=== PATIENT | male | born 1985 | race Caucasian/White ===

== ENCOUNTER 2022-06-23 13:35 | Inpatient (IN) ==
--- NOTE | 2022-06-23 15:33 | Cat Scan Report ---
CLINICAL INFORMATION: Infection. Evaluate for osteomyelitis COMPARISON: None. TECHNIQUE: 0.625 mm helical slices were obtained from through the left foot and ankle, and following reconstruction, 2.5 mm sagittal, coronal and axial reformations were then processed. The exam was reviewed at bone and soft tissue windows. The exam was performed using radiation dose optimization techniques including, but not limited to, automated exposure control, adjustment of the mA and/or kV according to patient size and use of iterative reconstruction technique. FINDINGS: Scattered small osteolytic foci in the phalangeal region are suspicious for multifocal osteomyelitis. Specific lesions include: 10 mm in the distal aspect of the first proximal phalanx best seen on sagittal image 36, 4 mm the distal aspect of the second middle phalanx, 5 mm in the distal aspect of the third proximal phalanx, 5 mm in the third middle phalanx, and 5 mm the distal aspect of the fourth middle phalanx. Moderate diffuse osteoporosis appreciated. There is moderate pes planus. Mild degenerative changes present in the second and fifth interphalangeal joints. There is marked cellulitis involving the dorsal aspect of the foot and ankle noted mild cellulitis in the plantar aspect of the phalangeal region IMPRESSION: Scattered small osteolytic foci in the first through fourth phalangeal region as described. These likely represent small foci of osteomyelitis. Severe cellulitis in the dorsal superior soft tissues of the foot and ankle with also plantar involving the phalangeal region. Interpreted and Authenticated by: Mejia Burrell 06/23/22
[2022-06-23 15:40] LABS: Basophils # (Auto) 0.04 K/mcL (0.00-0.30); Basophils % (Auto) 0.4 % (0.0-2.0); Eosinophils # (Auto) 0.16 K/mcL (0.00-0.70); Eosinophils % (Auto) 1.4 % (0.0-7.0); Hematocrit 45.1 % (40.1-51.0); Hemoglobin 14.2 g/dL (13.7-17.5); Lymphocytes # (Auto) 2.03 K/mcL (1.50-4.80); Lymphocytes % (Auto) 18.3 % (15.5-49.0); Mean Cell Volume 88.8 fL (80.0-100.0); Mean Corpuscular HGB Conc 31.5 g/dL (31.0-36.0); Monocytes # (Auto) 0.71 K/mcL (0.10-0.90); Monocytes % (Auto) 6.4 % (1.0-12.0); Neutrophils % (Auto) 73.1 % (38.0-78.0); Platelet Count 334 K/mcL (140-440); RBC 5.08 M/mcL (4.63-6.08); Red Cell Distribution Width 13.6 % (11.5-14.5); WBC 11.1 K/mcL (4.5-11.0)
--- NOTE | 2022-06-23 15:44 | Emergency Department Note ---
HPI General Chief complaint: Wound/Laceration Stated complaint: Infection Source: patient Mode of arrival: ambulatory Limitations: no limitations History of Present Illness HPI Narrative: Morbidly obese 37-year-old male with history of chronic lower extremity lymphedema and chronic venous insufficiency was seen in our ER on 05/19 for a left foot cellulitis. Patient has a CT scan that was equivocal for possible o steomyelitis, but left AMA before imaging could be discussed with the patient. I did prescribe Augmentin for 14 days to his pharmacy. He is back today from the wound care clinic with worsening infection of the foot. He has necrosis tissue between the first and second digits, which is new. Dr. Margaret ybarra would like us to rule him out for osteomyelitis. The patient denies F/C/S. He states that the Augmentin got him nearly completely better, but then he started developing some redness and pain to the foot approximately 4 to 5 days ago. The patient is not a good historian, and the left foot exam is not consistent with only 4 to 5 days of infection. Patient is prediabetic and not on medications for diabetes. He does carry a history of bipolar and is on multiple antipsychotics. He is also on amlodipine for hypertension. Related Data Home Medications Medication Instructions Recorded Confirmed cholecalciferol (vitamin D3) 125 5,000 unit PO QDAY 09/07/18 11/28/19 mcg (5,000 unit) capsule lamotrigine 150 mg tablet 150 mg PO BID 09/07/18 11/28/19 (Lamictal) levetiracetam 500 mg tablet 2,000 mg PO BID 09/07/18 11/28/19 (Keppra) lithium carbonate 450 mg 900 mg PO BID 09/07/18 11/28/19 tablet,extended release silver sulfadiazine 1 % topical 1 applic topical QDAY 09/07/18 11/28/19 cream acetaminophen 650 mg 650 mg PO Q4H PRN 09/10/18 11/28/19 tablet,extended release aripiprazole 15 mg tablet 15 mg PO QDAY 06/23/22 losartan 50 mg tablet 50 mg PO QDAY 06/23/22 trazodone 50 mg tablet 150 mg PO HS 06/23/22 Previous Rx's Medication Instructions Recorded oxycodone-acetaminophen 5 mg-325 1 tab PO Q4H PRN Pain #10 tabs 12/03/18 mg tablet Allergies Allergy/AdvReac Type Severity Reaction Status Date / Time hydrocodone Allergy Unknown Unknown Verified 06/23/22 13:40 ziprasidone [From Geodon] Allergy Unknown Unknown Verified 06/23/22 13:40 Review of Systems ROS ROS Narrative: Narrative: All systems ED: reviewed and negative except as stated. [facility] Narrative Patient History Narrative: Narrative: Medical/Surgical/Family History All Active Problems (Updated 06/23/22 @ 18:37 by Alicia Jackson PA-C) Osteomyelitis (Acute) Osteomyelitis (Acute) Dislocation of shoulder region (Acute) Infection of left foot (Acute) Strep throat (Chronic) Onychomycosis (Chronic) Recurrent dislocation, left shoulder (Chronic) Anxiety (Chronic) Hyperlipidemia (Chronic) DVT prophylaxis (Chronic) Ulcer (Chronic) Pseudomonas infection (Chronic) Blister (Chronic) Lower extremity edema (Chronic) Venous stasis dermatitis (Chronic) Athletes foot (Chronic) Change in weight (Chronic) Rash (Chronic) Leg swelling (Chronic) Strabismus (Chronic) Hypertension (Chronic) Depression (Chronic) Bipolar disorder (Chronic) Seizure disorder (Chronic) Obesity (Chronic) Cellulitis (Chronic) Medical History (Updated 06/23/22 @ 18:37 by Alicia Jackson PA-C) Anxiety Athletes foot Bipolar disorder Blister Cellulitis Right Leg Change in weight Depression DVT prophylaxis Hyperlipidemia Hypertension Leg swelling Lower extremity edema Obesity Onychomycosis Pseudomonas infection Rash Recurrent dislocation, left shoulder Seizure disorder Strabismus Strep throat Ulcer Venous stasis dermatitis Surgical History History of repair of rotator cuff (~07/2009) History of strabismus surgery (~1991) Family History Father Depression Mother Hypothyroid Family/Other Seizures Social History Smoking Status: Never smoker Alcohol Intake Frequency: does not drink Substance Use: does not use Exam General Limitations: no limitations Course Course Course Narrative: 37-year-old male presents for chronic left ulceration and foot wound with associated cellulitis Reevaluation(s) Reevaluation #1: Obtain basic labs, CRP, procalcitonin Obtain CT of the foot to query for osteomyelitis, necrotizing fasciitis Reevaluation #2: Mild elevation of inflammatory markers with a CRP of 3.1 and a procalcitonin of 0.10. CBC is only mildly elevated at 11,100, with a slight left shift. CT of the foot shows small scattered osteolytic foci in the first through fourth pharyngeal region. Severe cellulitis is noted to the dorsum of the foot in the soft tissues and in the ankle. No evidence of soft tissue gas to suggest necrotizing fasciitis. No abscesses. Vital Signs Vital signs: Vital Signs Temperature 97.2 F 06/23/22 13:38 Pulse Rate 120 H 06/23/22 13:38 Respiratory Rate 22 06/23/22 13:38 Blood Pressure 127/80 06/23/22 13:38 Pulse Oximetry (%) 98 06/23/22 13:38 Oxygen Delivery Method Room Air 06/23/22 13:38 Temperature 98 F 06/23/22 17:55 Pulse Rate 87 06/23/22 17:36 Respiratory Rate 22 06/23/22 17:55 Blood Pressure 144/77 06/23/22 17:55 Pulse Oximetry (%) 100 06/23/22 17:55 Oxygen Delivery Method Room Air 06/23/22 17:55 MDM MDM Narrative Medical decision making narrative: Left foot chronic wound with osteomyelitis Patient is a high risk for outpatient treatment failure due to poor follow-up and compliance. He has had multiple antibiotic exposures, most recently Augmentin. We"ll start him on broad-spectrum antibiotics to cover MRSA and Pseudomonas, as well as anaerobes. He is going to need inpatient antibiotics and further management until his infection is stabilized otherwise he is at risk of losing the limb. I reached out to the hospitalist, Dr. Walton and he is accepted the patient for admission. I have spoken with Dr. Blair who will consult for wound management. Lab Data 06/23/22 15:24 Labs: Lab Results 06/23/22 06/23/22 06/23/22 Range/Units 14:28 14:28 15:24 WBC 11.1 H (4.5-11.0) K/mcL RBC 5.08 (4.63-6.08) M/mcL Hgb 14.2 (13.7-17.5) g/dL Hct 45.1 (40.1-51.0) % MCV 88.8 (80.0-100.0) fL MCH 28.0 (26.0-34.0) pg MCHC 31.5 (31.0-36.0) g/dL RDW 13.6 (11.5-14.5) % Plt Count 334 (140-440) K/mcL MPV 10.0 (8.8-12.5) fL Immature Gran % (Auto) 0.4 (0.0-0.5) % Neut % (Auto) 73.1 (38.0-78.0) % Lymph % (Auto) 18.3 (15.5-49.0) % [place] % (Auto) 6.4 (1.0-12.0) % Eos % (Auto) 1.4 (0.0-7.0) % Baso % (Auto) 0.4 (0.0-2.0) % Lymph # (Auto) 2.03 (1.50-4.80) K/mcL [place] # (Auto) 0.71 (0.10-0.90) K/mcL Eos # (Auto) 0.16 (0.00-0.70) K/mcL Baso # (Auto) 0.04 (0.00-0.30) K/mcL Immature Gran # 0.04 (0.00-0.05) K/mcl Absolute Neutrophils 8.14 H (1.80-8.00) K/mcL C-Reactive Protein 3.10 H (0.03-0.80) mg/dL Procalcitonin 0.10 H (<0.10) ng/mL Discharge Plan Patient/Caregiver Discharge Instructions Pt seen by MANAGER FORMS/PA only: Yes Clinical Impression: Cellulitis, Osteomyelitis Patient Disposition: Home, Self-Care Discharge Date/Time: 06/23/22 17:30
[2022-06-23] MEDS ORDERED: metroNIDAZOLE 500 MG/100 ML BAG IV ONE (16:12)
[2022-06-23] MEDS ORDERED: CEFEPIME 2 GM VIAL IV ONE (16:12)
[2022-06-23] MEDS ORDERED: VANCOMYCIN 2,000 MG in 0.9 % SODIUM CHLORIDE 500 ML IV ONE ×2 (16:12→18:00)
--- NOTE | 2022-06-23 17:07 | Internal Med History&Physical ---
HPI History of Present Illness Patient information: Note initiated : 06/23/22 at 5:00 pm Service Date, if different from initiated Date: [] Patient: Miguel Vazquez 37 y/o M admitted on for Infection. Chief Complaint: [Sent from wound clinic] Chief complaint: Left foot erythema, swelling, foul odor History of present illness: Mr. Vazquez is a 37 year old morbidly obese male with a past medical history significant for hypertension, epilepsy, bipolar disorder and a nonhealing chronic left foot wound who presents from the wound clinic for worsening of the wound. The wound is necrotic appearing in between the webspaces of the first and second MTP. His foot is quite swollen and erythematous. The patient also has clear evidence of onychomycosis of his toenails. Dr. Cook recommended that he come to the ER for further management and evaluation. CT imaging was concerning for early osteomyelitis. The patient will be hospitalized to start parenteral antibiotics. The hospital service was asked admit the patient for further management and evaluation. The patient states that he has been off p.o. antibiotics for nearly 2 weeks. He states that his foot infection has worsened in the interim. The patient has a history of medical noncompliance. This may be in the setting of underlying psych disorder. He has been seen by infectious disease in the past. Review of Systems All systems: reviewed and no additional remarkable complaints except as stated Constitutional Constitutional: Present as per HPI EENT Eyes: Present as per HPI; Absent blurry vision Cardiovascular Cardiovascular: Present as per HPI; Absent chest pain, dyspnea, dyspnea on exertion, leg edema or palpatations Respiratory Respiratory: Present as per HPI; Absent cough, dyspnea, dyspnea on exertion, wheezing or stridor Gastrointestinal Gastrointestinal: Present as per HPI; Absent abdominal pain, diarrhea, dysphagia, hematemesis, melena, nausea or vomiting Musculoskeletal Musculoskeletal: Present as per HPI; Absent joint swelling, limited range of motion, muscle cramps, muscle weakness or myalgias Integumentary Integumentary: Present as per HPI; Absent erythema, new lesions, rash or wounds Neurological Neurological: Present as per HPI; Absent abnormal gait, behavioral changes, focal weakness, headache(s), loss of vision, numbness, sensory deficit or syncope Endocrine Endocrine: Absent change in body appearance, fatigue or heat intolerance Hematologic/Lymphatic Hematologic/Lymphatic: Present as per HPI PFSH PFSH All Active Problems (Updated 06/23/22 @ 17:05 by Ricco Walton MD) Osteomyelitis (Acute) Dislocation of shoulder region (Acute) Infection of left foot (Acute) Strep throat (Chronic) Onychomycosis (Chronic) Recurrent dislocation, left shoulder (Chronic) Anxiety (Chronic) Hyperlipidemia (Chronic) DVT prophylaxis (Chronic) Ulcer (Chronic) Pseudomonas infection (Chronic) Blister (Chronic) Lower extremity edema (Chronic) Venous stasis dermatitis (Chronic) Athletes foot (Chronic) Change in weight (Chronic) Rash (Chronic) Leg swelling (Chronic) Strabismus (Chronic) Hypertension (Chronic) Depression (Chronic) Bipolar disorder (Chronic) Seizure disorder (Chronic) Obesity (Chronic) Cellulitis (Chronic) Medical History (Updated 06/23/22 @ 17:05 by Ricco Walton MD) Anxiety Athletes foot Bipolar disorder Blister Cellulitis Right Leg Change in weight Depression DVT prophylaxis Hyperlipidemia Hypertension Leg swelling Lower extremity edema Obesity Onychomycosis Pseudomonas infection Rash Recurrent dislocation, left shoulder Seizure disorder Strabismus Strep throat Ulcer Venous stasis dermatitis Surgical History History of repair of rotator cuff (~07/2009) History of strabismus surgery (~1991) Family History Father Depression Mother Hypothyroid Family/Other Seizures Social History (Updated 06/18/19 @ 10:46 by Esdras Schmitz MD) marital status: single occupational status: disabled physical activity: walking frequency: 5-6 times per week smoking status: Never smoker alcohol intake frequency: does not drink substance use type: does not use seatbelt use: always MEDS/ALLERGIES Home Medications and Allergies Home Medications Medication Instructions Recorded Confirmed Type amlodipine 5 mg tablet 5 mg PO QDAY 09/07/18 11/28/19 History cholecalciferol (vitamin D3) 125 5,000 unit PO QDAY 09/07/18 11/28/19 History mcg (5,000 unit) capsule lamotrigine 150 mg tablet 150 mg PO BID 09/07/18 11/28/19 History (Lamictal) levetiracetam 500 mg tablet 2,000 mg PO BID 09/07/18 11/28/19 History (Keppra) lithium carbonate 450 mg 900 mg PO BID 09/07/18 11/28/19 History tablet,extended release silver sulfadiazine 1 % topical 1 applic topical QDAY 09/07/18 11/28/19 History cream trazodone 100 mg tablet 200 mg PO QHS 09/07/18 11/28/19 History acetaminophen 650 mg 650 mg PO Q4H PRN 09/10/18 11/28/19 History tablet,extended release oxycodone-acetaminophen 5 mg-325 1 tab PO Q4H PRN Pain #10 tabs 12/03/18 11/28/19 Rx mg tablet aripiprazole 30 mg tablet (Abilify) 15 mg PO QDAY 11/28/19 11/28/19 History amoxicillin 875 mg-potassium 1 tab PO BID #28 tabs 05/25/22 Rx clavulanate 125 mg tablet Allergies Allergy/AdvReac Type Severity Reaction Status Date / Time hydrocodone Allergy Unknown Unknown Verified 06/23/22 13:40 ziprasidone [From Geodon] Allergy Unknown Unknown Verified 06/23/22 13:40 EXAM Constitutional Vitals: Temp Pulse Resp BP Pulse Ox O2 Del Method 97.2 F 120 H 22 127/80 98 Room Air 06/23/22 13:38 06/23/22 13:38 06/23/22 13:38 06/23/22 13:38 06/23/22 13:38 06/23/22 13:38 General appearance: average body habitus Head Head exam: Present atraumatic, normal inspection and normocephalic Eye Eye exam: Present EOMI, normal appearance and PERRL; Absent conjunctival injection ENT ENT exam: Present normal exam; Absent mucous membranes dry Neck Neck exam: Present full ROM; Absent lymphadenopathy Respiratory Respiratory exam: Present normal respiratory exam and CTAB; Absent decreased breath sounds, respiratory distress or wheezes Cardiovascular Cardiovascular exam: Present normal rate and rhythm and RRR; Absent JVD GI/Abdominal GI/Abdominal exam: Present normal bowel sounds and soft; Absent diminished bowel sounds, distended, guarding, mass, rebound or tenderness Neurological Exam Neurological exam: Present alert, CN II-XII intact and oriented X3 Psychiatric Psychiatric exam: Present normal affect and normal mood Skin Skin exam: Present intact and warm; Absent erythema, pallor, petechiae or rash DATA Data Completed and Pending Labs: Labs from last 24 hours 06/23/22 06/23/22 06/23/22 15:24 14:28 14:28 WBC 11.1 H RBC 5.08 Hgb 14.2 Hct 45.1 MCV 88.8 MCH 28.0 MCHC 31.5 RDW 13.6 Plt Count 334 MPV 10.0 Immature Gran % (Auto) 0.4 Neut % (Auto) 73.1 Lymph % (Auto) 18.3 [place] % (Auto) 6.4 Eos % (Auto) 1.4 Baso % (Auto) 0.4 Lymph # (Auto) 2.03 [place] # (Auto) 0.71 Eos # (Auto) 0.16 Baso # (Auto) 0.04 Immature Gran # 0.04 Absolute Neutrophils 8.14 H C-Reactive Protein 3.10 H Procalcitonin 0.10 H A/P Assessment and plan (1) Cellulitis: Status: Chronic Comment: Right Leg (2) Obesity: Status: Chronic (3) Seizure disorder: Status: Chronic (4) Bipolar disorder: Status: Chronic (5) Depression: Status: Chronic (6) Hypertension: Status: Chronic (7) Osteomyelitis: Status: Acute Narrative A/P Narrative: At this point, the patient would benefit from operative debridement in order to remove necrotic material and culture the tissue and possibly the bone as well. This will be followed up by continuous long-term antimicrobial therapy to eradicate the rest of the infection. He will be started on broad-spectrum antibiotics with cefepime and vancomycin as he would benefit from an tipseudomonal and MRSA coverage. We will consult telemetry infectious disease in the morning. We will also discussed the case with Dr. Cook. Medication reconciliation is pending. Time Spent With Patient Time: Total time spent is greater than 50% in coordination of care (as documented) at patient's floor/unit and/or counseling patient: Initial: Total time with patient: 75 - 90 minutes
[2022-06-23] MEDS ORDERED: ONDANSETRON 4 MG/2 ML VIAL IV PRN (17:35)
[2022-06-23] MEDS ORDERED: HYDROcodone/APAP 5/325MG TABLET PO PRN (17:35)
[2022-06-23] MEDS ORDERED: IBUPROFEN 600 MG TABLET PO PRN (17:35)
[2022-06-23] MEDS ORDERED: ACETAMINOPHEN 325 MG TABLET PO PRN (17:35)
[2022-06-23] MEDS ORDERED: CEFEPIME 2 GM VIAL IV SCH (17:35)
[2022-06-23] MEDS: oxyCODONE/APAP 5/325MG TABLET PO PRN (21:04)
[2022-06-23] MEDS: DOCUSATE SODIUM 100 MG CAPSULE PO SCH (21:04)
[2022-06-23] MEDS: SENNOSIDES 1 TABLET PO SCH (21:04)
[2022-06-23] MEDS: CEFEPIME 2 GM VIAL IV SCH (22:14)
[2022-06-23] MEDS: 0.9 % SODIUM CHLORIDE 10 ML SYRINGE IV SCH (23:51)
[2022-06-24] MEDS: oxyCODONE/APAP 5/325MG TABLET PO PRN ×4 (04:44→18:56)
[2022-06-24] MEDS: CEFEPIME 2 GM VIAL IV SCH ×3 (05:23→21:33)
[2022-06-24] MEDS: 0.9 % SODIUM CHLORIDE 10 ML SYRINGE IV SCH ×3 (05:24→21:46)
[2022-06-24 06:21] LABS: Basophils # (Auto) 0.04 K/mcL (0.00-0.30); Basophils % (Auto) 0.5 % (0.0-2.0); Eosinophils # (Auto) 0.19 K/mcL (0.00-0.70); Eosinophils % (Auto) 2.2 % (0.0-7.0); Hematocrit 39.3 % (40.1-51.0); Lymphocytes # (Auto) 1.52 K/mcL (1.50-4.80); Lymphocytes % (Auto) 17.3 % (15.5-49.0); Mean Cell Volume 90.6 fL (80.0-100.0); Mean Corpuscular HGB Conc 30.5 g/dL (31.0-36.0); Mean Platelet Volume 9.5 fL (8.8-12.5); Monocytes # (Auto) 0.74 K/mcL (0.10-0.90); Monocytes % (Auto) 8.4 % (1.0-12.0); Neutrophils % (Auto) 71.3 % (38.0-78.0); Platelet Count 267 K/mcL (140-440); RBC 4.34 M/mcL (4.63-6.08); Red Cell Distribution Width 13.7 % (11.5-14.5); WBC 8.8 K/mcL (4.5-11.0)
[2022-06-24 06:37] LABS: Blood Urea Nitrogen 7 mg/dL (6-20); Calcium 8.5 mg/dL (8.6-10.4); Carbon Dioxide 27 mmol/L (22-30); Chloride 103 mmol/L (96-108); Glomerular Filtration Rate 115; Glucose 95 mg/dL (70-105)
[2022-06-24 06:52] LABS: Erythrocyte Sedimentation Rate 31 mm/hr (0-15)
[2022-06-24] MEDS ORDERED: VANCOMYCIN 2,000 MG in 0.9 % SODIUM CHLORIDE 500 ML IV ONE (07:00)
--- NOTE | 2022-06-24 08:28 | Infectious Disease Consult ---
Telemedicine Intake Start Time: 11:13 (AM PST) End Time: 11:53 (AM PST) Consent for assessment and treatment to occur via virtual technology obtained from: Patient Location of Provider: Other ([place]) Patient location: Intensive Care Unit HPI Date of Consult Consult Date: 06/24/22 Requesting physician: Ricco Walton Primary Care Provider: Mika Jessica MD Consult Narrative Patient Information: Note initiated : 06/24/22 at 8:28 am Service Date, if different from initiated Date: [] Patient: Miguel Vazquez 37 y/o M admitted on 06/23/22 for Infection. Chief Complaint: Left toes early osteomyelitis Reason for consult: Osteomyelitis Left toes cc:: This is a 37-year-old male prior medical history of morbid obesity, chronic lower extremity lymphedema, chronic venous insufficiency, and lower extremity stasis dermatitis, recurrent cellulitis recently treated with Augmentin back in April 2022 x 14 days who was admitted to our institution after being sent from wound care clinic for malodorous smell in between left toes and worsening infection. As per patient, he has had issues with his recurrent cellulitis for about 1year after he wore some shoes that caused his foot skin to open up. In the medical chart, patient has been seen as far back as 2019 and patient has had wound cultures which grew Staph haemolyticus, Pseudomonas, and even MRSA. Upon intial evaluation, pt was afebrile (97.2F) but tachycardic (120bpm), tachypneic (rr= 22/min), o2 sat 95%, normotensive (127/80mmHg). On labs, pt has mild leukocytosis (wbc 11.1k), esr 31, crp 3.50, pct 0.10. CT scan of left lower extremity and foot were performed found consistent with s cattered small osteolytic foci in the first through fourth phalangeal region which may represent small foci for osteomyelitis associated with severe cellulitis in the dorsal superior soft tissues of the foot and ankle also plantar involving the phalangeal region. Preliminary wound culutre +gram pos itive cocci / gram negative bacillus. Patient was started on IV vancomycin and cefepime, now consulted to ID service for further recommendations. Constitutional Constitutional: Present fatigue Additional comments: Referred feeling slightly tired during the weeks prior to admission Cardiovascular Cardiovascular: Present chest pain and leg edema Additional comments: Refers LLE Respiratory Respiratory: Present cough Additional comments: denies Gastrointestinal Gastrointestinal: Present nausea and vomiting Additional comments: denies Integumentary Integumentary: Present as per HPI, erythema, lesions, skin pain and wounds Additional comments: Refers worsening pain in the left foot and malodorous smell Neurological Neurological: Present confusion and headache(s) Additional comments: denies Psychiatric Psychiatric: Present as per HPI Additional comments: denies Hematologic/Lymphatic Additional comments: Presents for evaluationdenies Allergic/Immunologic Additional comments: denies PFSH PFSH All Active Problems (Updated 06/24/22 @ 12:20 by Julia Lee MD) Left leg cellulitis (Acute) Osteomyelitis (Acute) Osteomyelitis (Acute) Dislocation of shoulder region (Acute) Infection of left foot (Acute) Strep throat (Chronic) Onychomycosis (Chronic) Recurrent dislocation, left shoulder (Chronic) Anxiety (Chronic) Hyperlipidemia (Chronic) DVT prophylaxis (Chronic) Ulcer (Chronic) Pseudomonas infection (Chronic) Blister (Chronic) Lower extremity edema (Chronic) Venous stasis dermatitis (Chronic) Athletes foot (Chronic) Change in weight (Chronic) Rash (Chronic) Leg swelling (Chronic) Strabismus (Chronic) Hypertension (Chronic) Depression (Chronic) Bipolar disorder (Chronic) Seizure disorder (Chronic) Obesity (Chronic) Cellulitis (Chronic) Medical History (Updated 06/24/22 @ 12:20 by Julia Lee MD) Anxiety Athletes foot Bipolar disorder Blister Cellulitis Right Leg Change in weight Depression DVT prophylaxis History of MRSA infection Hyperlipidemia Hypertension Leg swelling Lower extremity edema Obesity Onychomycosis Pseudomonas infection Rash Recurrent dislocation, left shoulder Seizure disorder Strabismus Strep throat Ulcer Venous stasis dermatitis Surgical History History of repair of rotator cuff (~07/2009) History of strabismus surgery (~1991) Family History Father Depression Mother Hypothyroid Family/Other Seizures Social History marital status: single occupational status: disabled physical activity: walking frequency: 5-6 times per week smoking status: Never smoker alcohol intake frequency: does not drink substance use type: does not use seatbelt use: always MEDS/ALLERGIES Home Medications and Allergies Home Medications Medication Instructions Recorded Confirmed Type lamotrigine 150 mg tablet 150 mg PO BID 09/07/18 06/24/22 History (Lamictal) levetiracetam 500 mg tablet 2,000 mg PO BID 09/07/18 06/24/22 History (Keppra) lithium carbonate 450 mg 900 mg PO BID 09/07/18 06/24/22 History tablet,extended release acetaminophen 650 mg 650 mg PO Q4H PRN Pain 09/10/18 06/24/22 History tablet,extended release aripiprazole 15 mg tablet 15 mg PO QDAY 06/23/22 06/24/22 History losartan 50 mg tablet 50 mg PO QDAY 06/23/22 06/24/22 History trazodone 50 mg tablet 150 mg PO HS 06/23/22 06/24/22 History furosemide 40 mg tablet 80 mg PO QDAY 06/24/22 06/24/22 History gabapentin 300 mg capsule 600 mg PO BID neuropathic pain 06/24/22 06/24/22 History potassium chloride 20 mEq 40 meq PO QDAY 06/24/22 06/24/22 History tablet,extended release(part/cryst) (Klor-Con M) topiramate 50 mg tablet 150 mg PO HS 06/24/22 06/24/22 History Allergies Allergy/AdvReac Type Severity Reaction Status Date / Time hydrocodone Allergy Severe Seizure Verified 06/24/22 06:56 ziprasidone [From Geodon] Allergy Unknown Unknown Verified 06/23/22 13:40 Physical Examination Vital Signs Vital signs: Temp Pulse Resp BP Pulse Ox O2 Del Method 98.0 F 81 20 124/65 92 Room Air 06/24/22 07:22 06/24/22 07:26 06/24/22 07:22 06/24/22 07:25 06/24/22 07:26 06/24/22 07:22 Constitutional General appearance: no acute distress, alert and other (disheveled appearance, morbidly obese) EENT Eyes pulmonary: nonicteric ENT: oropharynx moist Respiratory Effort: normal Gastrointestinal Gastrointestinal: non-tender Integumentary Integumentary: erythema, cellulitis and other (presence of macerated, hyperpigmented skin of left foot and in between all toes; +yellow secretions seen ) Extremities Extremities: other (Left lower extremity hyperpigmented changes, shiny skin, devoid of hair, edema, erythema ) Neurologic Neurological: normal mental status Psychiatric Psychiatric: mood appropriate Results Laboratory Findings 06/24/22 05:30 06/24/22 05:30 Abnormal lab findings: Abnormal Labs 06/23/22 06/23/22 06/23/22 14:28 14:28 15:24 WBC 11.1 H RBC Hgb Hct MCHC Absolute Neutrophils 8.14 H ESR Anion Gap Calcium C-Reactive Protein 3.10 H Procalcitonin 0.10 H 06/24/22 06/24/22 05:30 05:30 WBC RBC 4.34 L Hgb 12.0 L Hct 39.3 L MCHC 30.5 L Absolute Neutrophils ESR 31 H Anion Gap 6.0 L Calcium 8.5 L C-Reactive Protein 3.50 H Procalcitonin Microbiology: Microbiology 06/24/22 05:31 Foot - Left Gram Stain - Preliminary Diagnostic Findings CT scan - chest: report reviewed A/P Assessment and plan (1) Osteomyelitis: Assessment and plan: - add metronidazole 500 mg IV every 8 hours to cover anaerobic darrick - discontinue Vancomycin IV based on pt's weight will require dosing above the recommended dose - obtain baseline CPK levels - start Daptomycin 700mg IV daily for now - agree with Cefepime 2g IV q8hrs - follow up blood cultures - follow up wound cultures - obtain LLE doppler US to rule out DVT - obtain MRSA in nares, pt had prior hx +MRSA - if BCx negative at 48hrs, place PICC line. Discussed with patient he will need prolonged 6 weeks IV antibiotic course given his long and recurrent history of foot infections - will follow up results for further recommendations Status: Acute (2) Left leg cellulitis: Status: Acute (3) Onychomycosis: Assessment and plan: - follow up with Podiatry Status: Chronic Time Spent With Patient Time: Total time spent is greater than 50% in coordination of care (as documented) at patient's floor/unit and/or counseling patient: Initial: Total time with patient: Less than 40 minutes Total Critical Care Time: 40 (mins)
[2022-06-24] MEDS ORDERED: VANCOMYCIN PER PHARMACY IV SCH (09:00)
[2022-06-24] MEDS ORDERED: ENOXAPARIN 40 MG/0.4 ML SYRINGE SQ SCH (09:00)
--- NOTE | 2022-06-24 09:13 | General Surgery Consult Note ---
HPI Date of Consult Consult Date: 06/24/22 Requesting physician: Ricco Walton Primary Care Provider: Mika Jessica MD Consult Narrative Patient Information: Note initiated : 06/24/22 at 8:53 am Service Date, if different from initiated Date: [] Patient: Miguel Vazquez 37 y/o M admitted on 06/23/22 for Infection. Chief Complaint: [] cc:: Evaluation and treatment of skin ans soft tissue wound and infection LEFT forefoot. Patient admitted via ER with DTI, CSSSI, and cellulitis of LEFT forefoot, toes / toenails. Patient with morbid obesity, Metabolic syndrome, IDDM, Onychomycosis of toenails. I saw this established patient at wound care clinic prior to his admission. CC: Ricco Walton MD Review of Systems All systems: reviewed and no additional remarkable complaints except as stated PFSH PFSH All Active Problems Osteomyelitis (Acute) Osteomyelitis (Acute) Dislocation of shoulder region (Acute) Infection of left foot (Acute) Strep throat (Chronic) Onychomycosis (Chronic) Recurrent dislocation, left shoulder (Chronic) Anxiety (Chronic) Hyperlipidemia (Chronic) DVT prophylaxis (Chronic) Ulcer (Chronic) Pseudomonas infection (Chronic) Blister (Chronic) Lower extremity edema (Chronic) Venous stasis dermatitis (Chronic) Athletes foot (Chronic) Change in weight (Chronic) Rash (Chronic) Leg swelling (Chronic) Strabismus (Chronic) Hypertension (Chronic) Depression (Chronic) Bipolar disorder (Chronic) Seizure disorder (Chronic) Obesity (Chronic) Cellulitis (Chronic) Medical History Anxiety Athletes foot Bipolar disorder Blister Cellulitis Right Leg Change in weight Depression DVT prophylaxis Hyperlipidemia Hypertension Leg swelling Lower extremity edema Obesity Onychomycosis Pseudomonas infection Rash Recurrent dislocation, left shoulder Seizure disorder Strabismus Strep throat Ulcer Venous stasis dermatitis Surgical History History of repair of rotator cuff (~07/2009) History of strabismus surgery (~1991) Family History Father Depression Mother Hypothyroid Family/Other Seizures Social History marital status: single occupational status: disabled physical activity: walking frequency: 5-6 times per week smoking status: Never smoker alcohol intake frequency: does not drink substance use type: does not use seatbelt use: always MEDS/ALLERGIES Home Medications and Allergies Home Medications Medication Instructions Recorded Confirmed Type lamotrigine 150 mg tablet 150 mg PO BID 09/07/18 06/24/22 History (Lamictal) levetiracetam 500 mg tablet 2,000 mg PO BID 09/07/18 06/24/22 History (Keppra) lithium carbonate 450 mg 900 mg PO BID 09/07/18 06/24/22 History tablet,extended release acetaminophen 650 mg 650 mg PO Q4H PRN Pain 09/10/18 06/24/22 History tablet,extended release aripiprazole 15 mg tablet 15 mg PO QDAY 06/23/22 06/24/22 History losartan 50 mg tablet 50 mg PO QDAY 06/23/22 06/24/22 History trazodone 50 mg tablet 150 mg PO HS 06/23/22 06/24/22 History furosemide 40 mg tablet 80 mg PO QDAY 06/24/22 06/24/22 History gabapentin 300 mg capsule 600 mg PO BID neuropathic pain 06/24/22 06/24/22 History potassium chloride 20 mEq 40 meq PO QDAY 06/24/22 06/24/22 History tablet,extended release(part/cryst) (Klor-Con M) topiramate 50 mg tablet 150 mg PO HS 06/24/22 06/24/22 History Allergies Allergy/AdvReac Type Severity Reaction Status Date / Time hydrocodone Allergy Severe Seizure Verified 06/24/22 06:56 ziprasidone [From Geodon] Allergy Unknown Unknown Verified 06/23/22 13:40 Physical Examination Vital Signs Vital signs: Temp Pulse Resp BP Pulse Ox O2 Del Method 98.0 F 81 20 124/65 92 Room Air 06/24/22 07:22 06/24/22 07:26 06/24/22 07:22 06/24/22 07:25 06/24/22 07:26 06/24/22 07:22 General physical appearance General physical exam: no distress and obese (Supermorbid obesity) Eyes Eye exam: PERRL and normal ocular movement ENT ENT exam: normal pinna, normal mucosa and no congestion Head Head exam IM: Present atraumatic and normocephalic Neck Neck exam: no masses and no venous distension Cardiovascular Cardiovascular exam IM: Present normal rate and rhythm Respiratory Respiratory exam: normal respiratory effort, clear to auscultation and other (Morbid obesity. Decreased air entry at lung bases.) Abdomen Abdomen: Present soft and bowel sounds Integumentary Integumentary: Present other (CSSSI, DTI LEFT 1st interdigital skin and sub q with odorous draiange. H/O MRSA in past. CELLULITIS extends to dorsal forefoot. Onychomycosis toenails) Neurologic Neurologic: Present other (Diabetes. Peripheral neuropathy) Musculoskeletal Musculoskeletal: Present other (Extensive soft tissue edema and tenderness along toes and toe movements LEFT foot. 1 thru 4 toes.) Psychiatric Psychiatric: Present oriented to time, oriented to person, oriented to place, speech is normal and memory intact Results Labs 06/24/22 05:30 06/24/22 05:30 Labs: Abnormal lab results 06/23/22 06/23/22 06/23/22 Range/Units 14:28 14:28 15:24 WBC 11.1 H (4.5-11.0) K/mcL RBC (4.63-6.08) M/mcL Hgb (13.7-17.5) g/dL Hct (40.1-51.0) % MCHC (31.0-36.0) g/dL Absolute Neutrophils 8.14 H (1.80-8.00) K/mcL ESR (0-15) mm/hr Anion Gap (8.0-16.0) Calcium (8.6-10.4) mg/dL C-Reactive Protein 3.10 H (0.03-0.80) mg/dL Procalcitonin 0.10 H (<0.10) ng/mL 06/24/22 06/24/22 Range/Units 05:30 05:30 WBC (4.5-11.0) K/mcL RBC 4.34 L (4.63-6.08) M/mcL Hgb 12.0 L (13.7-17.5) g/dL Hct 39.3 L (40.1-51.0) % MCHC 30.5 L (31.0-36.0) g/dL Absolute Neutrophils (1.80-8.00) K/mcL ESR 31 H (0-15) mm/hr Anion Gap 6.0 L (8.0-16.0) Calcium 8.5 L (8.6-10.4) mg/dL C-Reactive Protein 3.50 H (0.03-0.80) mg/dL Procalcitonin (<0.10) ng/mL Diabetes panel 06/24/22 Range/Units 05:30 Sodium 136 (133-145) mmol/L Potassium 3.7 (3.3-5.1) mmol/L Chloride 103 (96-108) mmol/L Carbon Dioxide 27 (22-30) mmol/L BUN 7 (6-20) mg/dL Creatinine 0.8 (0.7-1.2) mg/dL Glucose 95 (70-105) mg/dL Calcium 8.5 L (8.6-10.4) mg/dL Calcium panel 06/24/22 Range/Units 05:30 Calcium 8.5 L (8.6-10.4) mg/dL Pituitary panel 06/24/22 Range/Units 05:30 Sodium 136 (133-145) mmol/L Potassium 3.7 (3.3-5.1) mmol/L Chloride 103 (96-108) mmol/L Carbon Dioxide 27 (22-30) mmol/L BUN 7 (6-20) mg/dL Creatinine 0.8 (0.7-1.2) mg/dL Glucose 95 (70-105) mg/dL Calcium 8.5 L (8.6-10.4) mg/dL Adrenal panel 06/24/22 Range/Units 05:30 Sodium 136 (133-145) mmol/L Potassium 3.7 (3.3-5.1) mmol/L Chloride 103 (96-108) mmol/L Carbon Dioxide 27 (22-30) mmol/L BUN 7 (6-20) mg/dL Creatinine 0.8 (0.7-1.2) mg/dL Glucose 95 (70-105) mg/dL Calcium 8.5 L (8.6-10.4) mg/dL All other labs normal. A/P Narrative A/P Narrative: assessment: CSSSI LEFT forefoot and toes. Onychomycosis of toenails Cellulitis LEFT forefoot. DTI LEFT foot between 1 and 2 toes. Suspect mixed infection. Polymicrobial Morbid obesity, Metabolic Syndrome DM2 Peripheral neuropathy HTN Other multiple comorbidities. Plan of Treatment: Plan: Podiatry consult. Dr. Bustamante. Wound care nurse for skin care. Infectious Disease consult MIST with VASHE Left forefoot daily SANTYL ointment toe DTI after MIST QD Antifungal powder between toes BID Dry gauze between toes/ Kerlix PRN I have discussed POC with Kate KURTZ AND Dr. Walton Hospitalist Physician. I shall be OOT until Monday06/27/2022 Dr. Bustamante covering. Time Spent With Patient Time: Total time spent is greater than 50% in coordination of care (as documented) at patient's floor/unit and/or counseling patient: Initial: Total time with patient: 55 - 74 minutes
--- NOTE | 2022-06-24 09:29 | Internal Med Progress Note ---
SUBJECTIVE Subjective Patient information: Note initiated : 06/24/22 at 9:27 am Service Date, if different from initiated Date: [] Patient: Miguel Vazquez 37 y/o M admitted on 06/23/22 for Infection. Chief Complaint: [Left foot infection] Principal diagnosis: Left foot necrotic cellulitis/osteomyelitis Interval history: The patient was resting comfortably in bed. He is in good spirits. Discussed the case with Dr. Cook. Constitutional Vitals: Vital Signs Temp Pulse Resp BP Pulse Ox O2 Del Method 98.0 F 81 20 124/65 92 Room Air 06/24/22 07:22 06/24/22 07:26 06/24/22 07:22 06/24/22 07:25 06/24/22 07:26 06/24/22 07:22 Period Temp Pulse Resp BP Sys/Soto Pulse Ox O2 Del Method O2 Flow Rate Last 24 Hr 97.2 F-98.4 F 78-120 18-22 124-161/65-87 92-100 Room Air-Room Air Intake and Output 06/23/22 06/24/22 06/24/22 19:59 03:59 11:59 Intake Total 580 500 800 Output Total 1000 1800 Balance 580 -500 -1000 Weight 203.3 kg Intake & Output: Intake & Output 06/23/22 06/24/22 06/24/22 19:59 03:59 11:59 Intake Total 580 500 800 Output Total 1000 1800 Balance 580 -500 -1000 Weight 203.3 kg Intake: IV 100 500 Vancomycin 2,000 mg In Sodium 500 Chloride 0.9% 500 ml @ 250 mls/ hr IV ONCE ONE Rx#:[id number] Oral 480 800 Output: Urine Catheter Amount 850 Void Amount 1000 950 Other: Urine Appearance Clear Clear Urine Color Pale Yellow Head Head exam: Present atraumatic and normal inspection Eye Eye exam: Present normal appearance ENT ENT exam: Present mucous membranes moist, normal exam and normal external ear exam Neck Neck exam: Present normal inspection Respiratory Respiratory exam: Present normal respiratory exam Cardiovascular Cardiovascular exam: Present normal rate and rhythm GI/Abdominal GI/Abdominal exam: Present normal bowel sounds Back Exam Back exam: Present normal inspection Neurological Exam Neurological exam: Present alert and oriented X3 Skin Skin exam: Present intact and warm OBJ DATA Labs 06/24/22 05:30 06/24/22 05:30 Labs: Abnormal Lab Results 06/24/22 06/24/22 06/23/22 05:30 05:30 15:24 WBC 11.1 H RBC 4.34 L Hgb 12.0 L Hct 39.3 L MCHC 30.5 L Absolute Neutrophils 8.14 H ESR 31 H Anion Gap 6.0 L Calcium 8.5 L C-Reactive Protein 3.50 H Procalcitonin 06/23/22 06/23/22 14:28 14:28 WBC RBC Hgb Hct MCHC Absolute Neutrophils ESR Anion Gap Calcium C-Reactive Protein 3.10 H Procalcitonin 0.10 H Meds: Medications Acetaminophen (Acetaminophen 325 Mg Tablet) 650 mg PO Q6HP PRN; Protocol PRN Reason: Per Pain Protocol/Fever > 101 Cefepime HCl (Cefepime 2 Gm Vial) 2 gm IV Q8H [facility]; Protocol Last Admin: 06/24/22 05:23 Dose: 2 gm Docusate Sodium (Docusate Sodium 100 Mg Capsule) 100 mg PO BID [facility] Last Admin: 06/23/22 21:04 Dose: 100 mg Enoxaparin Sodium (Enoxaparin 40 Mg/0.4 Ml Syringe) 40 mg SQ DAILY [facility] Furosemide (Furosemide 40 Mg Tablet) 80 mg PO QDAY [facility] Gabapentin (Gabapentin 300 Mg Capsule) 600 mg PO BID [facility] Ibuprofen (Ibuprofen 600 Mg Tablet) 600 mg PO QIDP PRN; Protocol PRN Reason: Per Pain Protocol/Fever > 101 Lamotrigine (Lamotrigine 150 Mg Tablet) 150 mg PO BID [facility] Levetiracetam (Levetiracetam 500 Mg Tablet) 2,000 mg PO BID [facility] [place] Carbonate ([place] Carbonate 450 Mg Tab.Sr.12h) 900 mg PO BID [facility] Losartan Potassium (Losartan 50 Mg Tablet) 50 mg PO QDAY [facility] Ondansetron HCl (Ondansetron 4 Mg/2 Ml Vial) 4 mg IV Q6HP PRN PRN Reason: Nausea And Vomiting Oxycodone/Acetaminophen (Oxycodone/Apap 5/325mg Tablet) 1 tab PO Q4-6HP PRN; Protocol PRN Reason: Per Pain Protocol Last Admin: 06/24/22 04:44 Dose: 1 tab Potassium Chloride (Potassium Chloride 20 Meq Tablet) 40 meq PO QAMCC [facility] Senna (Sennosides 1 Tablet) 2 tab PO HS [facility] Last Admin: 06/23/22 21:04 Dose: 2 tab Sodium Chloride (0.9 % Sodium Chloride 10 Ml Syringe) 10 ml IV Q8 [facility] Last Admin: 06/24/22 05:24 Dose: 10 ml Topiramate (Topiramate 50 Mg Tablet) 150 mg PO HS [facility] Trazodone HCl (Trazodone Hcl 50 Mg Tablet) 150 mg PO HS [facility] Vancomycin HCl (Vancomycin Per Pharmacy) 1 order IV DAILY [facility]; Protocol Last Admin: 06/24/22 09:18 Dose: Not Given A/P Assessment and plan (1) Cellulitis: Status: Chronic Comment: Right Leg (2) Obesity: Status: Chronic (3) Seizure disorder: Status: Chronic (4) Bipolar disorder: Status: Chronic (5) Depression: Status: Chronic (6) Hypertension: Status: Chronic (7) Osteomyelitis: Status: Acute Narrative A/P Narrative: At this point, the patient would benefit from operative debridement in order to remove necrotic material and culture the tissue and possibly the bone as well. This will be followed up by continuous long-term antimicrobial therapy to eradicate the rest of the infection. He will be started on broad-spectrum antibiotics with cefepime and vancomycin as he would benefit from antipseudomonal and MRSA coverage. We will consult telemetry infectious disease in the morning. We will also discussed the case with Dr. Cook. Medication reconciliation is pending. 06/23: Med rec was performed. Discussed the case with Dr. Cook who will not take the patient to the OR but recommends chemical debridement with collagenase. He recommends podiatry consult over the weekend. Telemetry ID will also be consulted. Plan of Treatment: Plan: Podiatry consult. Dr. Bustamante. Wound care nurse for skin care. Infectious Disease consult MIST with LOGANHE Left forefoot daily SANTYL ointment toe DTI after MIST QD Antifungal powder between toes BID Dry gauze between toes/ Kerlix PRN I have discussed POC with Kate KURTZ AND Dr. Walton Hospitalist Physician. I shall be OOT until Monday06/27/2022 Dr. Bustamante covering. Time Spent With Patient Time: Total time spent is greater than 50% in coordination of care (as documented) at patient's floor/unit and/or counseling patient: Subsequent: Total time with patient: 25 - 34 minutes QUALITY VTE Deep Vein Thrombosis/Pulmonary Embolism Present on Admission: No
[2022-06-24] MEDS: ENOXAPARIN 40 MG/0.4 ML SYRINGE SQ SCH ×2 (11:06→21:33)
[2022-06-24] MEDS: DOCUSATE SODIUM 100 MG CAPSULE PO SCH ×2 (11:08→21:33)
[2022-06-24] MEDS: lamoTRIgine 100 MG TABLET PO SCH ×2 (11:09→21:46)
[2022-06-24] MEDS: GABAPENTIN 300 MG CAPSULE PO SCH ×2 (11:10→21:33)
[2022-06-24] MEDS: levETIRAcetam 500 MG TABLET PO SCH ×2 (11:10→21:45)
[2022-06-24] MEDS: LOSARTAN 50 MG TABLET PO SCH (11:11)
[2022-06-24] MEDS: FUROSEMIDE 40 MG TABLET PO SCH (11:11)
[2022-06-24] MEDS: ARIPIPRAZOLE 5 MG TABLET PO SCH (11:11)
[2022-06-24] MEDS: POTASSIUM CHLORIDE 20 MEQ TABLET PO SCH (11:12)
[2022-06-24] MEDS: COLLAGENASE TOP OINT TUBE 30GM TOPICAL SCH (14:20)
[2022-06-24] MEDS ORDERED: DAPTOmycin 500 MG VIAL IV SCH (15:00)
--- NOTE | 2022-06-24 15:43 | Ultrasound Report ---
CLINICAL INFORMATION: Left leg swelling COMPARISON: None. FINDINGS: The entire deep venous system including the common femoral, superficial femoral, popliteal and paired trifurcation calf veins are easily compressible and show normal venous blood flow on color and spectral Doppler. No evidence of thrombus IMPRESSION: Negative exam - no evidence of deep vein thrombosis. Interpreted and Authenticated by: Mejia Burrell 06/24/22
[2022-06-24] MEDS ORDERED: GABAPENTIN 300 MG CAPSULE PO SCH (21:00)
[2022-06-24] MEDS ORDERED: levETIRAcetam 500 MG TABLET PO SCH (21:00)
[2022-06-24] MEDS ORDERED: lamoTRIgine 100 MG TABLET PO SCH (21:00)
[2022-06-24] MEDS: SENNOSIDES 1 TABLET PO SCH (21:33)
[2022-06-24] MEDS: LITHIUM CARBONATE 450 MG TAB.SR.12H PO SCH (21:34)
[2022-06-24] MEDS: TOPIRAMATE 100 MG TABLET PO SCH (21:45)
[2022-06-24] MEDS: traZODone HCL 50 MG TABLET PO SCH (21:45)
[2022-06-25] MEDS: 0.9 % SODIUM CHLORIDE 10 ML SYRINGE IV SCH ×3 (05:54→21:23)
[2022-06-25] MEDS: CEFEPIME 2 GM VIAL IV SCH ×3 (05:54→21:23)
[2022-06-25 06:30] LABS: Creatine Kinase 101 U/L (24-195)
[2022-06-25] MEDS ORDERED: POTASSIUM CHLORIDE 20 MEQ TABLET PO SCH (08:00)
[2022-06-25] MEDS: ENOXAPARIN 40 MG/0.4 ML SYRINGE SQ SCH ×2 (08:25→21:21)
[2022-06-25] MEDS: LITHIUM CARBONATE 450 MG TAB.SR.12H PO SCH ×2 (08:25→21:22)
[2022-06-25] MEDS: FUROSEMIDE 40 MG TABLET PO SCH (08:26)
[2022-06-25] MEDS: levETIRAcetam 500 MG TABLET PO SCH ×2 (08:26→21:19)
[2022-06-25] MEDS: ARIPIPRAZOLE 5 MG TABLET PO SCH (08:26)
[2022-06-25] MEDS: POTASSIUM CHLORIDE 20 MEQ TABLET PO SCH (08:26)
[2022-06-25] MEDS: lamoTRIgine 100 MG TABLET PO SCH ×2 (08:26→21:20)
[2022-06-25] MEDS: GABAPENTIN 300 MG CAPSULE PO SCH ×2 (08:27→21:22)
[2022-06-25] MEDS: DOCUSATE SODIUM 100 MG CAPSULE PO SCH ×2 (08:27→21:20)
[2022-06-25] MEDS: LOSARTAN 50 MG TABLET PO SCH (08:27)
[2022-06-25] MEDS ORDERED: ARIPIPRAZOLE 5 MG TABLET PO SCH (09:00)
[2022-06-25] MEDS ORDERED: LOSARTAN 50 MG TABLET PO SCH (09:00)
[2022-06-25] MEDS ORDERED: FUROSEMIDE 40 MG TABLET PO SCH (09:00)
--- NOTE | 2022-06-25 09:22 | Internal Med Progress Note ---
SUBJECTIVE Subjective Patient information: Note initiated : 06/25/22 at 9:20 am Service Date, if different from initiated Date: [] Patient: Miguel Vazquez 37 y/o M admitted on 06/23/22 for Infection. Chief Complaint: [] Principal diagnosis: Left foot necrotic cellulitis/osteomyelitis Interval history: Patient is resting comfortably in bed. He has no active complaints or concerns. He was sitting up in his chair eating breakfast. He states that he is feeling much better today. He discussed the case with the RN. Constitutional Vitals: Vital Signs Temp Pulse Resp BP Pulse Ox O2 Del Method 98.6 F 71 20 151/92 96 Room Air 06/25/22 08:00 06/25/22 08:00 06/25/22 04:00 06/25/22 08:00 06/25/22 08:00 06/25/22 08:00 Period Temp Pulse Resp BP Sys/Soto Pulse Ox O2 Del Method O2 Flow Rate Last 24 Hr 97.8 F-98.8 F 71-88 16-20 150-164/65-92 92-96 Room Air-Room Air Intake and Output 06/24/22 06/25/22 06/25/22 19:59 03:59 11:59 Intake Total 2800 2320 Output Total 6100 1100 600 Balance -3300 -1100 1720 Weight 203.3 kg 202.847 kg Intake & Output: Intake & Output 06/24/22 06/25/22 06/25/22 19:59 03:59 11:59 Intake Total 2800 2320 Output Total 6100 1100 600 Balance -3300 -1100 1720 Weight 203.3 kg 202.847 kg Intake: Oral 2800 2320 Output: Void Amount 6100 1100 600 Other: Meal Dinner Breakfast Percent of Meal Consumed 100% 50% Feeding Ability Independent Independent Urine Appearance Clear Clear Clear Urine Color Pale Pale Pale Urine Odor Normal Head Head exam: Present atraumatic and normal inspection Eye Eye exam: Present normal appearance ENT ENT exam: Present mucous membranes moist, normal exam and normal external ear exam Neck Neck exam: Present normal inspection Respiratory Respiratory exam: Present normal respiratory exam Cardiovascular Cardiovascular exam: Present normal rate and rhythm GI/Abdominal GI/Abdominal exam: Present normal bowel sounds Back Exam Back exam: Present normal inspection Neurological Exam Neurological exam: Present alert and oriented X3 Skin Skin exam: Present intact and warm OBJ DATA Labs 06/24/22 05:30 06/24/22 05:30 Labs: Abnormal Lab Results 06/24/22 06/24/22 06/23/22 05:30 05:30 15:24 WBC 11.1 H RBC 4.34 L Hgb 12.0 L Hct 39.3 L MCHC 30.5 L Absolute Neutrophils 8.14 H ESR 31 H Anion Gap 6.0 L Calcium 8.5 L C-Reactive Protein 3.50 H Procalcitonin 06/23/22 06/23/22 14:28 14:28 WBC RBC Hgb Hct MCHC Absolute Neutrophils ESR Anion Gap Calcium C-Reactive Protein 3.10 H Procalcitonin 0.10 H Meds: Medications Acetaminophen (Acetaminophen 325 Mg Tablet) 650 mg PO Q6HP PRN; Protocol PRN Reason: Per Pain Protocol/Fever > 101 Cefepime HCl (Cefepime 2 Gm Vial) 2 gm IV Q8H [facility]; Protocol Last Admin: 06/25/22 05:54 Dose: 2 gm Collagenase (Collagenase Top Oint Tube 30gm) 1 dose TOPICAL DAILY [facility] Last Admin: 06/24/22 14:20 Dose: 1 dose Daptomycin (Daptomycin 500 Mg Vial) 700 mg IV Q24@1000 [facility] Docusate Sodium (Docusate Sodium 100 Mg Capsule) 100 mg PO BID [facility] Last Admin: 06/25/22 08:27 Dose: 100 mg Enoxaparin Sodium (Enoxaparin 40 Mg/0.4 Ml Syringe) 40 mg SQ BID [facility] Last Admin: 06/25/22 08:25 Dose: 40 mg Furosemide (Furosemide 40 Mg Tablet) 80 mg PO QDAY [facility] Last Admin: 06/25/22 08:26 Dose: 80 mg Gabapentin (Gabapentin 300 Mg Capsule) 600 mg PO BID [facility] Last Admin: 06/25/22 08:27 Dose: 600 mg Ibuprofen (Ibuprofen 600 Mg Tablet) 600 mg PO QIDP PRN; Protocol PRN Reason: Per Pain Protocol/Fever > 101 Lamotrigine (Lamotrigine 100 Mg Tablet) 150 mg PO BID [facility] Last Admin: 06/25/22 08:26 Dose: 150 mg Levetiracetam (Levetiracetam 500 Mg Tablet) 2,000 mg PO BID [facility] Last Admin: 06/25/22 08:26 Dose: 2,000 mg Early Carbonate (Early Carbonate 450 Mg Tab.Sr.12h) 900 mg PO BID [facility] Last Admin: 06/25/22 08:25 Dose: 900 mg Losartan Potassium (Losartan 50 Mg Tablet) 50 mg PO QDAY [facility] Last Admin: 06/25/22 08:27 Dose: 50 mg Ondansetron HCl (Ondansetron 4 Mg/2 Ml Vial) 4 mg IV Q6HP PRN PRN Reason: Nausea And Vomiting Oxycodone/Acetaminophen (Oxycodone/Apap 5/325mg Tablet) 1 tab PO Q4-6HP PRN; Protocol PRN Reason: Per Pain Protocol Last Admin: 06/24/22 18:56 Dose: 1 tab Potassium Chloride (Potassium Chloride 20 Meq Tablet) 40 meq PO QAMCC [facility] Last Admin: 06/25/22 08:26 Dose: 40 meq Senna (Sennosides 1 Tablet) 2 tab PO [facility] Last Admin: 06/24/22 21:33 Dose: 2 tab Sodium Chloride (0.9 % Sodium Chloride 10 Ml Syringe) 10 ml IV Q8 [facility] Last Admin: 06/25/22 05:54 Dose: 10 ml Topiramate (Topiramate 100 Mg Tablet) 150 mg PO [facility] Last Admin: 06/24/22 21:45 Dose: 150 mg Trazodone HCl (Trazodone Hcl 50 Mg Tablet) 150 mg PO [facility] Last Admin: 06/24/22 21:45 Dose: 150 mg A/P Assessment and plan (1) Cellulitis: Status: Chronic Comment: Right Leg (2) Obesity: Status: Chronic (3) Seizure disorder: Status: Chronic (4) Bipolar disorder: Status: Chronic (5) Depression: Status: Chronic (6) Hypertension: Status: Chronic (7) Osteomyelitis: Status: Acute Narrative A/P Narrative: At this point, the patient would benefit from operative debridement in order to remove necrotic material and culture the tissue and possibly the bone as well. This will be followed up by continuous long-term antimicrobial therapy to eradicate the rest of the infection. He will be started on broad-spectrum antibiotics with cefepime and vancomycin as he would benefit from antipseudomonal and MRSA coverage. We will consult telemetry infectious disease in the morning. We will also discussed the case with Dr. Cook. Medication reconciliation is pending. 06/24: Med rec was performed. Discussed the case with Dr. Cook who will not take the patient to the OR but recommends chemical debridement with col lagenase. He recommends podiatry consult over the weekend. Telemetry ID will also be consulted. 06/25: ID rec flagyl, dapto, and cefe (med changes made). CPK WNL, duplex neg for DVT. He will need 6w IV abx, no PICC RN available today. Dispo pending. Podiatry rec pending. Time Spent With Patient Time: Total time spent is greater than 50% in coordination of care (as documented) at patient's floor/unit and/or counseling patient: QUALITY VTE Deep Vein Thrombosis/Pulmonary Embolism Present on Admission: No
[2022-06-25] MEDS: DAPTOmycin 500 MG VIAL IV SCH (10:30)
[2022-06-25] MEDS: COLLAGENASE TOP OINT TUBE 30GM TOPICAL SCH (11:22)
[2022-06-25] MEDS: metroNIDAZOLE 500 MG TABLET PO SCH ×2 (13:13→21:20)
[2022-06-25] MEDS: oxyCODONE/APAP 5/325MG TABLET PO PRN ×2 (13:13→21:21)
[2022-06-25] MEDS: TOPIRAMATE 100 MG TABLET PO SCH (21:20)
[2022-06-25] MEDS: SENNOSIDES 1 TABLET PO SCH (21:20)
[2022-06-25] MEDS: traZODone HCL 50 MG TABLET PO SCH (21:20)
[2022-06-26] MEDS: 0.9 % SODIUM CHLORIDE 10 ML SYRINGE IV SCH ×3 (05:48→21:40)
[2022-06-26] MEDS: metroNIDAZOLE 500 MG TABLET PO SCH ×3 (05:48→21:39)
[2022-06-26] MEDS: CEFEPIME 2 GM VIAL IV SCH ×3 (05:48→21:40)
[2022-06-26] MEDS: oxyCODONE/APAP 5/325MG TABLET PO PRN ×2 (06:56→19:28)
[2022-06-26] MEDS: FUROSEMIDE 40 MG TABLET PO SCH (08:03)
[2022-06-26] MEDS: LOSARTAN 50 MG TABLET PO SCH (08:03)
[2022-06-26] MEDS: levETIRAcetam 500 MG TABLET PO SCH ×2 (08:03→21:48)
[2022-06-26] MEDS: ARIPIPRAZOLE 5 MG TABLET PO SCH (08:03)
[2022-06-26] MEDS: DOCUSATE SODIUM 100 MG CAPSULE PO SCH ×2 (08:03→21:38)
[2022-06-26] MEDS: POTASSIUM CHLORIDE 20 MEQ TABLET PO SCH (08:03)
[2022-06-26] MEDS: GABAPENTIN 300 MG CAPSULE PO SCH ×2 (08:04→19:29)
[2022-06-26] MEDS: ENOXAPARIN 40 MG/0.4 ML SYRINGE SQ SCH ×2 (08:04→21:40)
[2022-06-26] MEDS: lamoTRIgine 100 MG TABLET PO SCH ×2 (08:04→21:48)
[2022-06-26] MEDS: LITHIUM CARBONATE 450 MG TAB.SR.12H PO SCH ×2 (08:06→21:39)
[2022-06-26 09:27] LABS: ALT/SGPT 21 U/L (<40); AST/SGOT 24 U/L (<40); Albumin 3.9 gm/dL (3.2-5.2); Albumin/Globulin Ratio 1.3 (1.0-2.3); Alkaline Phosphatase 83 U/L (39-117); Bilirubin,Total 0.4 mg/dL (0.1-1.0); Blood Urea Nitrogen 9 mg/dL (6-20); Calcium 8.9 mg/dL (8.6-10.4); Carbon Dioxide 26 mmol/L (22-30); Chloride 98 mmol/L (96-108); Glomerular Filtration Rate 96; Glucose 108 mg/dL (70-105)
[2022-06-26] MEDS: COLLAGENASE TOP OINT TUBE 30GM TOPICAL SCH ×2 (11:03→11:35)
[2022-06-26] MEDS: DAPTOmycin 500 MG VIAL IV SCH (11:15)
--- NOTE | 2022-06-26 12:18 | Internal Med Progress Note ---
SUBJECTIVE Subjective Patient information: Note initiated : 06/26/22 at 12:11 pm Service Date, if different from initiated Date: [] Patient: Miguel Vazquez 37 y/o M admitted on 06/23/22 for Infection. Chief Complaint: [] Principal diagnosis: Left foot necrotic cellulitis/osteomyelitis Interval history: Mr. Vazquez is a 37 year old morbidly obese male with a past medical history significant for hypertension, epilepsy, bipolar disorder and a nonhealing chronic left foot wound who presents from the wound clinic for worsening of the wound. The wound is necrotic appearing in between the webspaces of the first and second MTP. His foot is quite swollen and erythematous. The patient also has clear evidence of onychomycosis of his toenails. Dr. Cook recommended that he come to the ER for further management and evaluation. CT imaging was concerning for early osteomyelitis. The patient will be hospitalized to start parenteral antibiotics. The hospital service was asked admit the patient for further management and evaluation. The patient states that he has been off p.o. antibiotics for nearly 2 weeks. He states that his foot infection has worsened in the interim. The patient has a history of medical noncompliance. This may be in the setting of underlying psych disorder. He has been seen by infectious disease in the past. 06/24: The patient was resting comfortably in bed. He is in good spirits. Discussed the case with Dr. Cook. 06/25: Patient is resting comfortably in bed. He has no active complaints or concerns. He was sitting up in his chair eating breakfast. He states that he is feeling much better today. He discussed the case with the RN. 06/26: Low grade fever Tmax 37.4 overnight. WBC today pending. Wound culture gram negative bacillus, blood culture no growth to date. Patient is c/o mild pain left foot and right lower leg. Good appetite. Good body strength. Continue to follow ID recs. Continue to follow Dr. Cook/Dr. Bustamante's recs. Continue Flagyl, Cefepime, and Daptomycin. Pending PICC line placement for 6 week IV antibiotics. Physical therapy evaluation and treatment. Constitutional Vitals: Vital Signs Temp Pulse Resp BP Pulse Ox O2 Del Method 36.7 C 76 18 135/78 94 Room Air 06/26/22 12:00 06/26/22 12:00 06/26/22 04:00 06/26/22 12:00 06/26/22 12:00 06/26/22 12:00 Period Temp Pulse Resp BP Sys/Soto Pulse Ox O2 Del Method O2 Flow Rate Last 24 Hr 36.6 C-37.4 C 70-79 16-20 135-153/78-102 94-100 Room Air-Room Air Intake and Output 06/26/22 06/26/22 06/26/22 03:59 11:59 19:59 Intake Total 1200 Balance 1200 Weight 186.058 kg Intake & Output: Intake & Output 06/26/22 06/26/22 06/26/22 03:59 11:59 19:59 Intake Total 1200 Balance 1200 Weight 186.058 kg Intake: Oral 1200 Other: Meal cheese sticks,jello, egg salad # Voids 1 General appearance: cooperative, morbidly obese and no acute distress Head Head exam: Present atraumatic and normal inspection Eye Eye exam: Present normal appearance ENT ENT exam: Present mucous membranes moist, normal exam and normal external ear exam Neck Neck exam: Present normal inspection Respiratory Respiratory exam: Present normal respiratory exam Cardiovascular Cardiovascular exam: Present normal rate and rhythm GI/Abdominal GI/Abdominal exam: Present normal bowel sounds Extremities Exam Extremities exam: Present full ROM; Absent normal inspection Additional comments: Left foot and right lower leg covered by wound dressings Back Exam Back exam: Present normal inspection Neurological Exam Neurological exam: Present alert and oriented X3 Skin Skin exam: Present warm; Absent intact Additional comments: Left foot and right lower leg covered by wound dressings OBJ DATA Labs 06/26/22 05:28 06/26/22 08:13 Labs: Abnormal Lab Results 06/26/22 06/24/22 06/24/22 08:13 05:30 05:30 WBC RBC 4.34 L Hgb 12.0 L Hct 39.3 L MCHC 30.5 L Absolute Neutrophils ESR 31 H Potassium 3.1 L Anion Gap 6.0 L Glucose 108 H Calcium 8.5 L C-Reactive Protein 3.50 H Procalcitonin 06/23/22 06/23/22 06/23/22 15:24 14:28 14:28 WBC 11.1 H RBC Hgb Hct MCHC Absolute Neutrophils 8.14 H ESR Potassium Anion Gap Glucose Calcium C-Reactive Protein 3.10 H Procalcitonin 0.10 H Meds: Medications Acetaminophen (Acetaminophen 325 Mg Tablet) 650 mg PO Q6HP PRN; Protocol PRN Reason: Per Pain Protocol/Fever > 101 Cefepime HCl (Cefepime 2 Gm Vial) 2 gm IV Q8H [facility]; Protocol Last Admin: 06/26/22 05:48 Dose: 2 gm Collagenase (Collagenase Top Oint Tube 30gm) 1 dose TOPICAL DAILY [facility] Last Admin: 06/26/22 11:03 Dose: Not Given Daptomycin (Daptomycin 500 Mg Vial) 700 mg IV Q24@1000 [facility] Last Admin: 06/26/22 11:15 Dose: 700 mg Docusate Sodium (Docusate Sodium 100 Mg Capsule) 100 mg PO BID [facility] Last Admin: 06/26/22 08:03 Dose: 100 mg Enoxaparin Sodium (Enoxaparin 40 Mg/0.4 Ml Syringe) 40 mg SQ BID [facility] Last Admin: 06/26/22 08:04 Dose: 40 mg Furosemide (Furosemide 40 Mg Tablet) 80 mg PO QDAY [facility] Last Admin: 06/26/22 08:03 Dose: 80 mg Gabapentin (Gabapentin 300 Mg Capsule) 600 mg PO BID [facility] Last Admin: 06/26/22 08:04 Dose: 600 mg Ibuprofen (Ibuprofen 600 Mg Tablet) 600 mg PO QIDP PRN; Protocol PRN Reason: Per Pain Protocol/Fever > 101 Lamotrigine (Lamotrigine 100 Mg Tablet) 150 mg PO BID [facility] Last Admin: 06/26/22 08:04 Dose: 150 mg Levetiracetam (Levetiracetam 500 Mg Tablet) 2,000 mg PO BID [facility] Last Admin: 06/26/22 08:03 Dose: 2,000 mg [place] Carbonate ([place] Carbonate 450 Mg Tab.Sr.12h) 900 mg PO BID [facility] Last Admin: 06/26/22 08:06 Dose: 900 mg Losartan Potassium (Losartan 50 Mg Tablet) 50 mg PO QDAY [facility] Last Admin: 06/26/22 08:03 Dose: 50 mg Metronidazole (Metronidazole 500 Mg Tablet) 500 mg PO Q8 [facility]; Protocol Last Admin: 06/26/22 05:48 Dose: 500 mg Ondansetron HCl (Ondansetron 4 Mg/2 Ml Vial) 4 mg IV Q6HP PRN PRN Reason: Nausea And Vomiting Oxycodone/Acetaminophen (Oxycodone/Apap 5/325mg Tablet) 1 tab PO Q4-6HP PRN; Protocol PRN Reason: Per Pain Protocol Last Admin: 06/26/22 06:56 Dose: 1 tab Potassium Chloride (Potassium Chloride 20 Meq Tablet) 40 meq PO QAMCC [facility] Last Admin: 06/26/22 08:03 Dose: 40 meq Senna (Sennosides 1 Tablet) 2 tab PO [facility] Last Admin: 06/25/22 21:20 Dose: 2 tab Sodium Chloride (0.9 % Sodium Chloride 10 Ml Syringe) 10 ml IV Q8 [facility] Last Admin: 06/26/22 05:48 Dose: 10 ml Topiramate (Topiramate 100 Mg Tablet) 150 mg PO [facility] Last Admin: 06/25/22 21:20 Dose: 150 mg Trazodone HCl (Trazodone Hcl 50 Mg Tablet) 150 mg PO [facility] Last Admin: 06/25/22 21:20 Dose: 150 mg A/P Assessment and plan (1) Cellulitis of left foot: Status: Acute (2) Cellulitis of right lower leg: Status: Acute (3) Bipolar disorder: Status: Chronic (4) Seizure disorder: Status: Chronic (5) Hypertension: Status: Chronic (6) Hypokalemia: Status: Acute Narrative A/P Narrative: Assessment and Plans: 1. Cellulitis of right lower leg and left foot: Inpatient med surg Consult ID, recs. appreciated Consult Dr. Cook, recs. appreciated Consult Dr. Bustamante, recs. appreciated Wound culture: gram negative bacillus Blood culture: no growth to date cbc w/ auto diff in the morning to trend WBC Pending PICC line placement for 6 week IV antibiotics therapy Flagyl Cefepime Daptomycin Physical therapy evaluation and treatment 2. Hypokalemia: Potassium chloride oral replacement Chemistry daily to trend Also check serum Mg level and replace as needed 3. Seizure disorder: Gabapentin Topamax Keppra 4. Essential hypertension: PO Lasix Losartan 5. Bipolar disorder: Abilify Lamotrigine [place] [facility] ppx: not currently indicated DVT ppx: Lovenox Code status: Full Prognosis: stable Disposition: inpatient med surg; PT Time Spent With Patient Time: Total time spent is greater than 50% in coordination of care (as documented) at patient's floor/unit and/or counseling patient: Subsequent: Total time with patient: 35 - 49 minutes QUALITY VTE Deep Vein Thrombosis/Pulmonary Embolism Present on Admission: No
[2022-06-26] MEDS: SENNOSIDES 1 TABLET PO SCH (21:40)
[2022-06-26] MEDS: traZODone HCL 50 MG TABLET PO SCH (21:47)
[2022-06-26] MEDS: TOPIRAMATE 100 MG TABLET PO SCH (21:48)
[2022-06-27] MEDS: metroNIDAZOLE 500 MG TABLET PO SCH ×3 (05:32→21:08)
[2022-06-27] MEDS: 0.9 % SODIUM CHLORIDE 10 ML SYRINGE IV SCH ×4 (05:32→21:10)
[2022-06-27] MEDS: CEFEPIME 2 GM VIAL IV SCH ×3 (05:32→21:40)
[2022-06-27 06:12] LABS: Basophils # (Auto) 0.04 K/mcL (0.00-0.30); Basophils % (Auto) 0.5 % (0.0-2.0); Eosinophils # (Auto) 0.21 K/mcL (0.00-0.70); Eosinophils % (Auto) 2.4 % (0.0-7.0); Lymphocytes % (Auto) 19.3 % (15.5-49.0); Mean Cell Volume 88.7 fL (80.0-100.0); Mean Corpuscular HGB Conc 31.7 g/dL (31.0-36.0); Mean Platelet Volume 10.2 fL (8.8-12.5); Monocytes # (Auto) 0.77 K/mcL (0.10-0.90); Monocytes % (Auto) 8.8 % (1.0-12.0); Neutrophils % (Auto) 68.7 % (38.0-78.0); Platelet Count 299 K/mcL (140-440); RBC 4.62 M/mcL (4.63-6.08); Red Cell Distribution Width 13.2 % (11.5-14.5); WBC 8.8 K/mcL (4.5-11.0)
[2022-06-27 06:54] LABS: ALT/SGPT 25 U/L (<40); AST/SGOT 31 U/L (<40); Albumin 3.8 gm/dL (3.2-5.2); Albumin/Globulin Ratio 1.2 (1.0-2.3); Alkaline Phosphatase 85 U/L (39-117); Bilirubin,Total 0.4 mg/dL (0.1-1.0); Blood Urea Nitrogen 10 mg/dL (6-20); Calcium 9.1 mg/dL (8.6-10.4); Carbon Dioxide 26 mmol/L (22-30); Chloride 104 mmol/L (96-108); Globulin 3.2 gm/dL (2.2-3.7); Glomerular Filtration Rate 109; Glucose 101 mg/dL (70-105)
[2022-06-27] MEDS: FUROSEMIDE 40 MG TABLET PO SCH (08:15)
[2022-06-27] MEDS: lamoTRIgine 100 MG TABLET PO SCH ×2 (08:15→21:07)
[2022-06-27] MEDS: LOSARTAN 50 MG TABLET PO SCH (08:15)
[2022-06-27] MEDS: ARIPIPRAZOLE 5 MG TABLET PO SCH (08:16)
[2022-06-27] MEDS: GABAPENTIN 300 MG CAPSULE PO SCH ×2 (08:16→21:08)
[2022-06-27] MEDS: POTASSIUM CHLORIDE 20 MEQ TABLET PO SCH (08:16)
[2022-06-27] MEDS: ENOXAPARIN 40 MG/0.4 ML SYRINGE SQ SCH ×2 (08:17→21:08)
[2022-06-27] MEDS: levETIRAcetam 500 MG TABLET PO SCH ×2 (08:17→21:08)
[2022-06-27] MEDS: oxyCODONE/APAP 5/325MG TABLET PO PRN ×3 (08:17→21:08)
[2022-06-27] MEDS: LITHIUM CARBONATE 450 MG TAB.SR.12H PO SCH ×2 (08:20→21:09)
[2022-06-27] MEDS: DOCUSATE SODIUM 100 MG CAPSULE PO SCH ×2 (08:21→20:53)
[2022-06-27] MEDS: DAPTOmycin 500 MG VIAL IV SCH (10:25)
[2022-06-27] MEDS: COLLAGENASE TOP OINT TUBE 30GM TOPICAL SCH (10:25)
--- NOTE | 2022-06-27 13:25 | Internal Med Progress Note ---
SUBJECTIVE Subjective Patient information: Note initiated : 06/27/22 at 1:20 pm Service Date, if different from initiated Date: [] Patient: Miguel Vazquez 37 y/o M admitted on 06/23/22 for Infection. Chief Complaint: [] Principal diagnosis: Left foot necrotic cellulitis/osteomyelitis Interval history: Mr. Vazquez is a 37 year old morbidly obese male with a past medical history significant for hypertension, epilepsy, bipolar disorder and a nonhealing chronic left foot wound who presents from the wound clinic for worsening of the wound. The wound is necrotic appearing in between the webspaces of the first and second MTP. His foot is quite swollen and erythematous. The patient also has clear evidence of onychomycosis of his toenails. Dr. Cook recommended that he come to the ER for further management and evaluation. CT imaging was concerning for early osteomyelitis. The patient will be hospitalized to start parenteral antibiotics. The hospital service was asked admit the patient for further management and evaluation. The patient states that he has been off p.o. antibiotics for nearly 2 weeks. He states that his foot infection has worsened in the interim. The patient has a history of medical noncompliance. This may be in the setting of underlying psych disorder. He has been seen by infectious disease in the past. 06/24: The patient was resting comfortably in bed. He is in good spirits. Discussed the case with Dr. Cook. 06/25: Patient is resting comfortably in bed. He has no active complaints or concerns. He was sitting up in his chair eating breakfast. He states that he is feeling much better today. He discussed the case with the RN. 06/26: Low grade fever Tmax 37.4 overnight. WBC today pending. Wound culture gram negative bacillus, blood culture no growth to date. Patient is c/o mild pain left foot and right lower leg. Good appetite. Good body strength. Continue to follow ID recs. Continue to follow Dr. Cook/Dr. Bustamante's recs. Continue Flagyl, Cefepime, and Daptomycin. Pending PICC line placement for 6 week IV antibiotics. Physical therapy evaluation and treatment. 06/27: Low grade fever Tmax 37.4 overnight again. WBC 8.8 this morning. Wound culture grew multiple organisms. Patient is c/o mild pain left foot and right lower leg. Good appetite. Good body strength. Pending PICC line placement today at 1500. Continue to follow ID recs. Continue to follow Dr. Cook/Dr. Bustamante's recs. Continue Flagyl PO, Cefepime IV, and Daptomycin IV. Physical therapy evaluation and treatment. Constitutional Vitals: Vital Signs Temp Pulse Resp BP Pulse Ox O2 Del Method 36.2 C 83 20 115/62 100 Room Air 06/27/22 09:26 06/27/22 09:26 06/27/22 09:26 06/27/22 09:26 06/27/22 09:26 06/27/22 03:28 Period Temp Pulse Resp BP Sys/Soto Pulse Ox O2 Del Method O2 Flow Rate Last 24 Hr 36.2 C-37.4 C 69-89 18-20 100-145/56-98 96-100 Room Air-Room Air Intake and Output 06/27/22 06/27/22 06/27/22 03:59 11:59 19:59 Intake Total 1280 240 Balance 1280 240 Intake & Output: Intake & Output 06/27/22 06/27/22 06/27/22 03:59 11:59 19:59 Intake Total 1280 240 Balance 1280 240 Intake: Oral 1280 240 Other: Meal Breakfast Percent of Meal Consumed 100% Feeding Ability Independent # Voids 1 Head Head exam: Present atraumatic and normal inspection Eye Eye exam: Present normal appearance ENT ENT exam: Present mucous membranes moist, normal exam and normal external ear exam Neck Neck exam: Present normal inspection Respiratory Respiratory exam: Present normal respiratory exam Cardiovascular Cardiovascular exam: Present normal rate and rhythm GI/Abdominal GI/Abdominal exam: Present normal bowel sounds Extremities Exam Extremities exam: Present tenderness; Absent normal inspection Additional comments: Skin desquamation webspace between first and second left toes. Two additional areas of skin desquamation measuring 2X3cm and 1.5X1cm on right lateral lower leg Back Exam Back exam: Present normal inspection Neurological Exam Neurological exam: Present alert and oriented X3 Skin Skin exam: Present erythema and warm; Absent intact Additional comments: Skin desquamation webspace between first and second left toes. Two additional areas of skin desquamation measuring 2X3cm and 1.5X1cm on right lateral lower le g OBJ DATA Labs 06/27/22 05:18 06/27/22 05:18 Labs: Abnormal Lab Results 06/27/22 06/26/22 05:18 08:13 RBC 4.62 L Hgb 13.0 L Potassium 3.1 L Glucose 108 H Meds: Medications Acetaminophen (Acetaminophen 325 Mg Tablet) 650 mg PO Q6HP PRN; Protocol PRN Reason: Per Pain Protocol/Fever > 101 Cefepime HCl (Cefepime 2 Gm Vial) 2 gm IV Q8H [facility]; Protocol Last Admin: 06/27/22 05:32 Dose: 2 gm Collagenase (Collagenase Top Oint Tube 30gm) 1 dose TOPICAL DAILY [facility] Last Admin: 06/27/22 10:25 Dose: 1 dose Daptomycin (Daptomycin 500 Mg Vial) 700 mg IV Q24@1000 [facility] Last Admin: 06/27/22 10:25 Dose: 700 mg Docusate Sodium (Docusate Sodium 100 Mg Capsule) 100 mg PO BID [facility] Last Admin: 06/27/22 08:21 Dose: Not Given Enoxaparin Sodium (Enoxaparin 40 Mg/0.4 Ml Syringe) 40 mg SQ BID [facility] Last Admin: 06/27/22 08:17 Dose: 40 mg Furosemide (Furosemide 40 Mg Tablet) 80 mg PO QDAY [facility] Last Admin: 06/27/22 08:15 Dose: 80 mg Gabapentin (Gabapentin 300 Mg Capsule) 600 mg PO BID [facility] Last Admin: 06/27/22 08:16 Dose: 600 mg Ibuprofen (Ibuprofen 600 Mg Tablet) 600 mg PO QIDP PRN; Protocol PRN Reason: Per Pain Protocol/Fever > 101 Lamotrigine (Lamotrigine 100 Mg Tablet) 150 mg PO BID [facility] Last Admin: 06/27/22 08:15 Dose: 150 mg Levetiracetam (Levetiracetam 500 Mg Tablet) 2,000 mg PO BID [facility] Last Admin: 06/27/22 08:17 Dose: 2,000 mg [place] Carbonate ([place] Carbonate 450 Mg Tab.Sr.12h) 900 mg PO BID [facility] Last Admin: 06/27/22 08:20 Dose: 900 mg Losartan Potassium (Losartan 50 Mg Tablet) 50 mg PO QDAY [facility] Last Admin: 06/27/22 08:15 Dose: 50 mg Metronidazole (Metronidazole 500 Mg Tablet) 500 mg PO Q8 [facility]; Protocol Last Admin: 06/27/22 05:32 Dose: 500 mg Ondansetron HCl (Ondansetron 4 Mg/2 Ml Vial) 4 mg IV Q6HP PRN PRN Reason: Nausea And Vomiting Oxycodone/Acetaminophen (Oxycodone/Apap 5/325mg Tablet) 1 tab PO Q4-6HP PRN; Protocol PRN Reason: Per Pain Protocol Last Admin: 06/27/22 08:17 Dose: 1 tab Potassium Chloride (Pot[facility] 20 [facility]eq [facility]t) [facility] Admin: 06/27/22 08:16 Dose: 40 meq Senna (Sennosides 1 Tablet) 2 tab PO [facility] Last Admin: 06/26/22 21:40 Dose: Not Given Sodium Chloride (0.9 % Sodium Chloride 10 Ml Syringe) 10 ml IV Q8 [facility] Last Admin: 06/27/22 05:32 Dose: 10 ml Topiramate (Topiramate 100 Mg Tablet) 150 mg PO [facility] Last Admin: 06/26/22 21:48 Dose: 150 mg Trazodone HCl (Trazodone Hcl 50 Mg Tablet) 150 mg PO [facility] Last Admin: 06/26/22 21:47 Dose: 150 mg A/P Assessment and plan (1) Cellulitis of left foot: Status: Acute (2) Cellulitis of right lower leg: Status: Acute (3) Bipolar disorder: Status: Chronic (4) Seizure disorder: Status: Chronic (5) Hypertension: Status: Chronic (6) Hypokalemia: Status: Acute Narrative A/P Narrative: Assessment and Plans: 1. Cellulitis of right lower leg and left foot: Inpatient med surg Consult ID, recs. appreciated Consult Dr. Cook, recs. appreciated Consult Dr. Bustamante, recs. appreciated Wound culture: multiple organisms Blood culture: no growth to date cbc w/ auto diff in the morning to trend WBC Pending PICC line placement for 6 week IV antibiotics therapy Flagyl Cefepime Daptomycin Physical therapy evaluation and treatment 2. Hypokalemia: Potassium chloride oral replacement Chemistry daily to trend Also check serum Mg level and replace as needed 3. Seizure disorder: Gabapentin Topamax Keppra 4. Essential hypertension: PO Lasix Losartan 5. Bipolar disorder: Abilify Lamotrigine [place] [facility] ppx: not currently indicated DVT ppx: Lovenox Code status: Full Prognosis: stable Disposition: inpatient med surg; PT Time Spent With Patient Time: Total time spent is greater than 50% in coordination of care (as documented) at patient's floor/unit and/or counseling patient: Subsequent: Total time with patient: 35 - 49 minutes QUALITY VTE Deep Vein Thrombosis/Pulmonary Embolism Present on Admission: No
--- NOTE | 2022-06-27 13:35 | Internal Med Progress Note ---
SUBJECTIVE Subjective Patient information: Note initiated : 06/27/22 at 1:34 pm Service Date, if different from initiated Date: [] Patient: Miguel Vazquez 37 y/o M admitted on 06/23/22 for Infection. Chief Complaint: Left 1st, 2nd, 3rd, 4th toe OM with associated cellulitis Principal diagnosis: Left foot necrotic cellulitis/osteomyelitis Interval history: This is a 37y/o male pmhx morbid obesity, chronic lower extremity lymphedema, chronic venous insufficiency, and lower extremity stasis dermatitis, recurrent cellulitis recently treated with Augmentin back in April 2022 x 14 days who was admitted to our institution after being sent from wound care clinic for malodorous smell in between left toes and worsening infection. As per patient, he has had issues with his recurrent cellulitis for about 1year after he wore some shoes that caused his foot skin to open up. In the medical chart, patient has been seen as far back as 2019 and patient has had wound cultures which grew Staph haemolyticus, Pseudomonas, and even MRSA. Upon intial evaluation, pt was afebrile (97.2F) but tachycardic (120bpm), tachypneic (rr= 22/min), o2 sat 95%, normotensive (127/80mmHg). On labs, pt has mild leukocytosis (wbc 11.1k), esr 31, crp 3.50, pct 0.10. CT scan of left lower extremity and foot were performed found consistent with scattered small osteolytic foci in the first through fourth phalangeal region which may represent small foci for osteomyelitis associated with severe cellulitis in the dorsal superior soft tissues of the foot and ankle also plantar involving the phalangeal region. Preliminary wound culutre +gram positive cocci / gram negative bacillus. Patient was started on IV vancomycin and cefepime on admission. Upon evaluation by ID service, pt was switched to IV Daptomycin, Cefepime, and Flagyl. Final wound culture results now available growing Aeromonas, Proteus, and Myroides spp. Contacted Micro lab today to obtain Ertapenem susceptibility for all specimens but susceptibility was not able to be interpreted for Aeromonas and Myroides spp. Meropenem is susceptible to all species and will d ouble cover Myroides species for multidrug resistance Pertinent ROS: feeling much better today, I am ambulating Constitutional Vitals: Vital Signs Temp Pulse Resp BP Pulse Ox O2 Del Method 97.2 F 83 20 115/62 100 Room Air 06/27/22 09:26 06/27/22 09:26 06/27/22 09:26 06/27/22 09:26 06/27/22 09:26 06/27/22 03:28 Period Temp Pulse Resp BP Sys/Soto Pulse Ox O2 Del Method O2 Flow Rate Last 24 Hr 97.2 F-99.3 F 69-89 18-20 100-145/56-98 96-100 Room Air-Room Air Intake and Output 06/27/22 06/27/22 06/27/22 03:59 11:59 19:59 Intake Total 1280 240 Balance 1280 240 Intake & Output: Intake & Output 06/27/22 06/27/22 06/27/22 03:59 11:59 19:59 Intake Total 1280 240 Balance 1280 240 Intake: Oral 1280 240 Other: Meal Breakfast Percent of Meal Consumed 100% Feeding Ability Independent # Voids 1 General appearance: cooperative, morbidly obese and no acute distress Head Head exam: Present atraumatic and normocephalic Eye Eye exam: Present EOMI and PERRL ENT ENT exam: Present mucous membranes moist Neck Neck exam: Present full ROM Respiratory Respiratory exam: Present normal respiratory exam Extremities Exam Extremities exam: Present full ROM Expanded Lower Extremity Exam Lower leg exam: Present swelling (decreased swelling) Foot/Toe exam: Present full ROM Leg image: 1. bandaged left foot; improved erythema, improved edema OBJ DATA Labs 06/27/22 05:18 06/27/22 05:18 Labs: Abnormal Lab Results 06/27/22 06/26/22 05:18 08:13 RBC 4.62 L Hgb 13.0 L Potassium 3.1 L Glucose 108 H Meds: Medications Acetaminophen (Acetaminophen 325 Mg Tablet) 650 mg PO Q6HP PRN; Protocol PRN Reason: Per Pain Protocol/Fever > 101 Cefepime HCl (Cefepime 2 Gm Vial) 2 gm IV Q8H [facility]; Protocol Last Admin: 06/27/22 05:32 Dose: 2 gm Collagenase (Collagenase Top Oint Tube 30gm) 1 dose TOPICAL DAILY [facility] Last Admin: 06/27/22 10:25 Dose: 1 dose Daptomycin (Daptomycin 500 Mg Vial) 700 mg IV Q24@1000 [facility] Last Admin: 06/27/22 10:25 Dose: 700 mg Docusate Sodium (Docusate Sodium 100 Mg Capsule) 100 mg PO BID [facility] Last Admin: 06/27/22 08:21 Dose: Not Given Enoxaparin Sodium (Enoxaparin 40 Mg/0.4 Ml Syringe) 40 mg SQ BID [facility] Last Admin: 06/27/22 08:17 Dose: 40 mg Furosemide (Furosemide 40 Mg Tablet) 80 mg PO QDAY [facility] Last Admin: 06/27/22 08:15 Dose: 80 mg Gabapentin (Gabapentin 300 Mg Capsule) 600 mg PO BID [facility] Last Admin: 06/27/22 08:16 Dose: 600 mg Ibuprofen (Ibuprofen 600 Mg Tablet) 600 mg PO QIDP PRN; Protocol PRN Reason: Per Pain Protocol/Fever > 101 Lamotrigine (Lamotrigine 100 Mg Tablet) 150 mg PO BID [facility] Last Admin: 06/27/22 08:15 Dose: 150 mg Levetiracetam (Levetiracetam 500 Mg Tablet) 2,000 mg PO BID [facility] Last Admin: 06/27/22 08:17 Dose: 2,000 mg Myra Carbonate (Myra Carbonate 450 Mg Tab.Sr.12h) 900 mg PO BID [facility] Last Admin: 06/27/22 08:20 Dose: 900 mg Losartan Potassium (Losartan 50 Mg Tablet) 50 mg PO QDAY [facility] Last Admin: 06/27/22 08:15 Dose: 50 mg Metronidazole (Metronidazole 500 Mg Tablet) 500 mg PO Q8 [facility]; Protocol Last Admin: 06/27/22 05:32 Dose: 500 mg Ondansetron HCl (Ondansetron 4 Mg/2 Ml Vial) 4 mg IV Q6HP PRN PRN Reason: Nausea And Vomiting Oxycodone/Acetaminophen (Oxycodone/Apap 5/325mg Tablet) 1 tab PO Q4-6HP PRN; Protocol PRN Reason: Per Pain Protocol Last Admin: 06/27/22 08:17 Dose: 1 tab Potassium Chloride (Potassium Chloride 20 Meq Tablet) 40 meq PO QAMCC [facility] Last Admin: 06/27/22 08:16 Dose: 40 meq Senna (Sennosides 1 Tablet) 2 tab PO HS [facility] Last Admin: 06/26/22 21:40 Dose: Not Given Sodium Chloride (0.9 % Sodium Chloride 10 Ml Syringe) 10 ml IV Q8 [facility] Last Admin: 06/27/22 05:32 Dose: 10 ml Topiramate (Topiramate 100 Mg Tablet) 150 mg PO HS [facility] Last Admin: 06/26/22 21:48 Dose: 150 mg Trazodone HCl (Trazodone Hcl 50 Mg Tablet) 150 mg PO HS [facility] Last Admin: 06/26/22 21:47 Dose: 150 mg A/P Assessment and plan (1) Toe osteomyelitis, left: Assessment and plan: - discontinue Flagyl - discontinue Cefepime - discontinue Daptomycin - start Meropenem 1g IV via PICC line every 8hrs to complete total 6 week course until August 04, 2022 - obtain ECG now, if QTC <500ms then start Levofloxacin 750mg PO daily to complete total 6 week course until August 04, 2022 (will double cover Myroides spp as it is a MDR organism) - wear gloves/gowns when changing patient's bandages - obtain weekly cbc+diff, cmp, ESR, CRP levels while on IV antibiotics - please set up follow up appointment at outpatient ID clinic upon discharge to review labs and monitor patient for side effects and clinical improvement - follow up outpatient with wound care as well Status: Acute (2) Cellulitis of left foot: Status: Acute Plan Full recommendations to follow Time Spent With Patient Time: Total time spent is greater than 50% in coordination of care (as documented) at patient's floor/unit and/or counseling patient: Initial: Total time with patient: 40 - 54 minutes Total Critical Care Time: 50 (MINS) QUALITY VTE Deep Vein Thrombosis/Pulmonary Embolism Present on Admission: No
--- NOTE | 2022-06-27 15:52 | XRay Report ---
INDICATION: PICC placement TECHNIQUE: AP portable supine chest x-ray COMPARISON: None FINDINGS: Left-sided PICC line with its tip in the brachiocephalic vein. It is possible this should be advanced to the superior vena cava if possible. Lungs are negative. No parenchymal infiltrate or mass. Heart size and vascularity are normal. IMPRESSION: Left-sided PICC line with its tip in the brachiocephalic vein Interpreted and Authenticated by: Mejia Pennington 06/27/22
[2022-06-27] MEDS: SENNOSIDES 1 TABLET PO SCH (20:53)
[2022-06-27] MEDS: TOPIRAMATE 100 MG TABLET PO SCH (21:07)
[2022-06-27] MEDS: traZODone HCL 50 MG TABLET PO SCH (21:08)
[2022-06-28] MEDS: 0.9 % SODIUM CHLORIDE 10 ML SYRINGE IV SCH ×4 (05:41→22:36)
[2022-06-28] MEDS: CEFEPIME 2 GM VIAL IV SCH (05:41)
[2022-06-28] MEDS: metroNIDAZOLE 500 MG TABLET PO SCH (05:41)
[2022-06-28 06:29] LABS: Basophils # (Auto) 0.04 K/mcL (0.00-0.30); Basophils % (Auto) 0.4 % (0.0-2.0); Eosinophils # (Auto) 0.19 K/mcL (0.00-0.70); Hematocrit 41.4 % (40.1-51.0); Lymphocytes # (Auto) 1.63 K/mcL (1.50-4.80); Lymphocytes % (Auto) 17.3 % (15.5-49.0); Mean Cell Volume 87.7 fL (80.0-100.0); Mean Corpuscular HGB Conc 31.4 g/dL (31.0-36.0); Mean Platelet Volume 10.2 fL (8.8-12.5); Monocytes # (Auto) 0.83 K/mcL (0.10-0.90); Monocytes % (Auto) 8.8 % (1.0-12.0); Neutrophils % (Auto) 71.1 % (38.0-78.0); Platelet Count 301 K/mcL (140-440); RBC 4.72 M/mcL (4.63-6.08); Red Cell Distribution Width 13.2 % (11.5-14.5); WBC 9.4 K/mcL (4.5-11.0)
[2022-06-28 06:39] LABS: Erythrocyte Sedimentation Rate 55 mm/hr (0-15)
[2022-06-28 06:59] LABS: ALT/SGPT 47 U/L (<40); AST/SGOT 59 U/L (<40); Albumin 4.1 gm/dL (3.2-5.2); Albumin/Globulin Ratio 1.2 (1.0-2.3); Alkaline Phosphatase 89 U/L (39-117); Bilirubin,Total 0.3 mg/dL (0.1-1.0); Blood Urea Nitrogen 10 mg/dL (6-20); Calcium 8.9 mg/dL (8.6-10.4); Carbon Dioxide 25 mmol/L (22-30); Chloride 102 mmol/L (96-108); Globulin 3.3 gm/dL (2.2-3.7); Glomerular Filtration Rate 109; Glucose 115 mg/dL (70-105)
[2022-06-28] MEDS: LITHIUM CARBONATE 450 MG TAB.SR.12H PO SCH ×2 (08:18→23:05)
[2022-06-28] MEDS: LOSARTAN 50 MG TABLET PO SCH (08:18)
[2022-06-28] MEDS: FUROSEMIDE 40 MG TABLET PO SCH (08:18)
[2022-06-28] MEDS: POTASSIUM CHLORIDE 20 MEQ TABLET PO SCH (08:18)
[2022-06-28] MEDS: GABAPENTIN 300 MG CAPSULE PO SCH ×2 (08:18→22:30)
[2022-06-28] MEDS: ENOXAPARIN 40 MG/0.4 ML SYRINGE SQ SCH ×2 (08:19→22:33)
[2022-06-28] MEDS: DOCUSATE SODIUM 100 MG CAPSULE PO SCH ×2 (08:19→22:36)
[2022-06-28] MEDS: lamoTRIgine 100 MG TABLET PO SCH ×2 (08:26→22:31)
[2022-06-28] MEDS: levETIRAcetam 500 MG TABLET PO SCH ×2 (08:27→22:31)
[2022-06-28] MEDS: ARIPIPRAZOLE 5 MG TABLET PO SCH (08:30)
--- NOTE | 2022-06-28 08:57 | EKG ---
[facility] Test Date: 2022-06-27 Pat Name: Miguel Vazquez Department: ICU Room: 119 Gender: Male Tuyere Fitter: : 1985 Requested By: Levi Gray Order Number: [id number] Reading MD: Mejia Haq M.D. Measurements Intervals [place] Rate: 70 P: 15 MI: 179 QRS: 44 QRSD: 101 T: 33 QT: 411 QTc: 444 Interpretive Statements Sinus rhythm Consider Anteroseptal infarct, old Electronically Signed On 06-28-2022 8:56:54 PST by Mejia Haq M.D. /[email or web address]/[email or web address]/[id number]
[2022-06-28] MEDS: DAPTOmycin 500 MG VIAL IV SCH (10:41)
[2022-06-28] MEDS ORDERED: ERTAPENEM 1 GM in 0.9 % SODIUM CHLORIDE 50 ML IV SCH (11:00)
[2022-06-28] MEDS: PIPERACILLIN SODIUM/TAZOBACTAM 3.375 GM in DEXTROSE 5% IN WATER 50 ML IV SCH ×2 (11:33→17:13)
[2022-06-28] MEDS: LEVOFLOXACIN 750 MG TABLET PO SCH (11:42)
[2022-06-28] MEDS: COLLAGENASE TOP OINT TUBE 30GM TOPICAL SCH (11:43)
--- NOTE | 2022-06-28 12:23 | Discharge Summary ---
Discharge Provider Provider IMPORTANT FOLLOW-UP INFORMATION FOR PCP: Patient information: Note initiated : 06/28/22 at 12:18 pm Service Date, if different from initiated Date: [] Patient: Miguel Vazquez 37 y/o M admitted on 06/23/22 for Infection. Chief Complaint: [] Date of admission: 06/23/22 17:35 Discharge date: 06/29/22 Primary care physician: Mika Jessica MD Consults: 06/23/22 Consult to Physician [CONS] Stat Comment: Consulting Provider: Cal Cook Reason For Exam: Physician to Consult Consult to Physician [CONS] Stat Comment: Consulting Provider: Ricco Walton Reason For Exam: Physician to Consult 06/24/22 07:54 Consult to Physician [CONS] Routine Comment: Consulting Provider: Ez HINTON Reason For Exam: Physician to Consult 06/24/22 09:26 Consult to Physician [CONS] Routine Comment: Consulting Provider: Jacob Bustamante Reason For Exam: Physician to Consult COURSE Hospital Course Hospital course: Mr. Vazquez is a 37 year old morbidly obese male with a past medical history significant for hypertension, epilepsy, bipolar disorder and a nonhealing chronic left foot wound who presents from the wound clinic for worsening of the wound. The wound is necrotic appearing in between the webspaces of the first and second MTP. His foot is quite swollen and erythematous. The patient also has clear evidence of onychomycosis of his toenails. Dr. Cook recommended that he come to the ER for further management and evaluation. CT imaging was concerning for early osteomyelitis. The patient will be hospitalized to start parenteral antibiotics. The hospital service was asked admit the patient for further management and evaluation. The patient states that he has been off p.o. antibiotics for nearly 2 weeks. He states that his foot infection has worsened in the interim. The patient has a history of medical noncompliance. This may be in the setting of underlying psych disorder. He has been seen by infectious disease in the past. 06/24: The patient was resting comfortably in bed. He is in good spirits. Discussed the case with Dr. Cook. 06/25: Patient is resting comfortably in bed. He has no active complaints or concerns. He was sitting up in his chair eating breakfast. He states that he is feeling much better today. He discussed the case with the RN. 06/26: Low grade fever Tmax 37.4 overnight. WBC today pending. Wound culture gram negative bacillus, blood culture no growth to date. Patient is c/o mild pain left foot and right lower leg. Good appetite. Good body strength. Continue to follow ID recs. Continue to follow Dr. Cook/Dr. Bustamante's recs. Continue Flagyl, Cefepime, and Daptomycin. Pending PICC line placement for 6 week IV antibiotics. Physical therapy evaluation and treatment. 06/27: Low grade fever Tmax 37.4 overnight again. WBC 8.8 this morning. Wound culture grew multiple organisms. Patient is c/o mild pain left foot and right lower leg. Good appetite. Good body strength. Pending PICC line placement today at 1500. Continue to follow ID recs. Continue to follow Dr. Cook/Dr. Bustamante's recs. Continue Flagyl PO, Cefepime IV, and Daptomycin IV. Physical therapy evaluation and treatment. 06/28: PICC lince placed on 06/27 Tentative plan: Discharge tomorrow (2-) outside swing bed for IV Merrem 1gm q8hr and PO Levaquin 750mg daily for 6 week. cbc, CMP, ESR, CRP weekly. Wound care while there. 06/29: Discharged. Discharge diagnosis: Left foot cellulitis with osteomyelitis Time Spent with Patient Time attestation: Total time spent providing and/or coordinating discharge services: Time spent: Greater than 30 minutes EXAM Constitutional Vitals: Temp Pulse Resp BP Pulse Ox O2 Del Method 37.1 C 77 20 138/88 98 Room Air 06/28/22 08:00 06/28/22 08:00 06/28/22 08:00 06/28/22 08:00 06/28/22 08:00 06/28/22 08:00 General appearance: cooperative and no acute distress Head Head exam: Present atraumatic and normocephalic Eye Eye exam: Present EOMI and PERRL ENT ENT exam: Present mucous membranes moist, normal exam and normal external ear exam Neck Neck exam: Present normal inspection; Absent lymphadenopathy, tenderness or thyromegaly Respiratory Respiratory exam: Absent accessory muscle use, respiratory distress or wheezes Cardiovascular Cardiovascular exam: Present normal rate and rhythm; Absent JVD GI/Abdominal GI/Abdominal exam: Present normal bowel sounds and soft; Absent organomegaly or tenderness Rectal Rectal exam: Present deferred Extremities Exam Extremities exam: Present full ROM and normal capillary refill; Absent normal inspection or tenderness Additional comments: Left foot and right lower leg covered by wound dressings Neurological Exam Neurological exam: Present alert, CN II-XII intact and oriented X3; Absent motor sensory deficit Psychiatric Psychiatric exam: Present normal affect and normal mood; Absent anxious or depressed Skin Skin exam: Present dry; Absent intact Additional comments: Left foot and right lower leg covered by wound dressings Discharge Data Data Completed and Pending Labs on day of discharge: Labs from last 24 hours 06/28/22 06/28/22 05:22 05:22 WBC 9.4 RBC 4.72 Hgb 13.0 L Hct 41.4 MCV 87.7 MCH 27.5 MCHC 31.4 RDW 13.2 Plt Count 301 MPV 10.2 Immature Gran % (Auto) 0.4 Neut % (Auto) 71.1 Lymph % (Auto) 17.3 Hale % (Auto) 8.8 Eos % (Auto) 2.0 Baso % (Auto) 0.4 Lymph # (Auto) 1.63 Hale # (Auto) 0.83 Eos # (Auto) 0.19 Baso # (Auto) 0.04 Immature Gran # 0.04 Absolute Neutrophils 6.68 ESR 55 H Sodium 136 Potassium 3.4 Chloride 102 Carbon Dioxide 25 Anion Gap 9.0 BUN 10 Creatinine 0.9 GFR Calculation 109 Glucose 115 H Calcium 8.9 Magnesium 2.3 Total Bilirubin 0.3 AST 59 H ALT 47 H Alkaline Phosphatase 89 C-Reactive Protein 2.00 H Total Protein 7.4 Albumin 4.1 Globulin 3.3 Albumin/Globulin Ratio 1.2 Preliminary micro results at discharge 06/23/22 18:10 Blood Culture - Preliminary Blood 06/23/22 18:00 Blood Culture - Preliminary Blood Discharge Plan Patient/Caregiver Discharge Instructions Activity: increase activity as tolerated Diet: Regular Diet Instructions: Cellulitis (GEN), Osteomyelitis (GEN), Diabetic Ketoacidosis (GEN), How to Care for Your PICC (Peripherally Inserted Central Catheter) (GEN) Prescriptions: New meropenem 1 gram recon soln 1 g IV Q8H Qty: 126 0RF levofloxacin 750 mg tablet 750 mg PO Q24H 42 Days Qty: 42 0RF Continued lithium carbonate 450 mg tablet extended release 900 mg PO BID levetiracetam [Keppra] 500 mg tablet 2,000 mg PO BID lamotrigine [Lamictal] 150 mg tablet 150 mg PO BID acetaminophen 650 mg tablet extended release 650 mg PO Q4H PRN (Reason: Pain) aripiprazole 15 mg tablet 15 mg PO QDAY trazodone 50 mg tablet 150 mg PO HS losartan 50 mg tablet 50 mg PO QDAY furosemide 40 mg tablet 80 mg PO QDAY gabapentin 300 mg capsule 600 mg PO BID topiramate 50 mg tablet 150 mg PO HS potassium chloride [Klor-Con M20] 20 mEq tablet,ER particles/crystals 40 meq PO QDAY Other Ambulatory Orders: Complete Blood Count (WEEKLY) Timeframe: 20220809 Facility: [facility] - Location: Laboratory Ordered By: Levi Gray Complete Blood Count (WEEKLY) Timeframe: 20220816 Facility: [facility] - Location: Laboratory Ordered By: Levi Gray Complete Blood Count (WEEKLY) Timeframe: [id number] Facility: [facility] - Location: Laboratory Ordered By: Levi Gray Complete Blood Count (WEEKLY) Timeframe: 20220830 Facility: [facility] - Location: Laboratory Ordered By: Levi Gray Complete Blood Count (WEEKLY) Timeframe: 20220906 Facility: [facility] - Location: Laboratory Ordered By: Levi Gray Complete Blood Count (WEEKLY) Timeframe: [id number] Facility: [facility] - Location: Laboratory Ordered By: Levi Gray Comprehensive Metabolic Panel (WEEKLY) Timeframe: 20220809 Facility: [facility] - Location: Laboratory Ordered By: Levi Gray Comprehensive Metabolic Panel (WEEKLY) Timeframe: 20220816 Facility: [facility] - Location: Laboratory Ordered By: Levi Gray Comprehensive Metabolic Panel (WEEKLY) Timeframe: [id number] Facility: [facility] - Location: Laboratory Ordered By: Levi Gray Comprehensive Metabolic Panel (WEEKLY) Timeframe: 20220830 Facility: [facility] - Location: Laboratory Ordered By: Levi Gray Comprehensive Metabolic Panel (WEEKLY) Timeframe: [id number] Facility: [facility] - Location: Laboratory Ordered By: Levi Gray Comprehensive Metabolic Panel (WEEKLY) Timeframe: [id number] Facility: [facility] - Location: Laboratory Ordered By: Chi Ange Pui CRP,High Sensitivity (WEEKLY) Timeframe: 20220809 Facility: [facility] - Location: Laboratory Ordered By: Chi Ange Pui CRP,High Sensitivity (WEEKLY) Timeframe: 20220816 Facility: [facility] - Location: Laboratory Ordered By: Chi Ange Pui CRP,High Sensitivity (WEEKLY) Timeframe: [id number] Facility: [facility] - Location: Laboratory Ordered By: Chi Ange Pui CRP,High Sensitivity (WEEKLY) Timeframe: 20220830 Facility: [facility] - Location: Laboratory Ordered By: Chi Ange Pui CRP,High Sensitivity (WEEKLY) Timeframe: 20220906 Facility: [facility] - Location: Laboratory Ordered By: Chi Ange Pui CRP,High Sensitivity (WEEKLY) Timeframe: [id number] Facility: [facility] - Location: Laboratory Ordered By: Chi Ange Pui Erythrocyte Sedimentation Rate (WEEKLY) Timeframe: 20220809 Facility: [facility] - Location: Laboratory Ordered By: Chi Ange Pui Erythrocyte Sedimentation Rate (WEEKLY) Timeframe: [id number] Facility: [facility] - Location: Laboratory Ordered By: Chi Ange Pui Erythrocyte Sedimentation Rate (WEEKLY) Timeframe: [id number] Facility: [facility] - Location: Laboratory Ordered By: Chi Ange Pui Erythrocyte Sedimentation Rate (WEEKLY) Timeframe: 20220830 Facility: [facility] - Location: Laboratory Ordered By: Chi Ange Pui Erythrocyte Sedimentation Rate (WEEKLY) Timeframe: [id number] Facility: [facility] - Location: Laboratory Ordered By: Chi Ange Pui Erythrocyte Sedimentation Rate (WEEKLY) Timeframe: [id number] Facility: [facility] - Location: Laboratory Ordered By: Chi Ange Pui Wound Care Instructions (CONT) Location: None Selected Ordered By: Cal Cook OT Discharge Order (Routine) Facility: [facility] - Location: [facility] Ordered By: Levi Gray Physical Therapy at Discharge - General (Routine) Facility: [facility] - Location: [facility] Ordered By: Levi Gray Follow Up Plan Follow up with: Cal Cook MD [Physician] - 07/13/22 1:00 pm (Follow up at [facility] wound healing clinic.) Mika Jessica MD [Primary Care Provider] - (Please call to schedule an appointment as needed. ) Patient Disposition: [facility] Swing Bed Plan of Treatment: Plan: Routine skin, nail and wound care at [facility] in local facility at [facility], ID. F/U at wound care clinic in 2 weeks time. Rehab Potential: Good I certify that the patient requires SNF services: Yes Overall status at discharge: patient is progressing back to baseline Discharge Orders: Discharge Order (Routine); Ordered 06/29/22 Ordered By: Levi FRANCISCO VTE Deep Vein Thrombosis/Pulmonary Embolism Present on Admission: No
--- NOTE | 2022-06-28 12:36 | Internal Med Progress Note ---
SUBJECTIVE Subjective Patient information: Note initiated : 06/28/22 at 12:32 pm Service Date, if different from initiated Date: [] Patient: Miguel Vazquez 37 y/o M admitted on 06/23/22 for Infection. Chief Complaint: [] Principal diagnosis: Left foot necrotic cellulitis/osteomyelitis Interval history: Mr. Vazquez is a 37 year old morbidly obese male with a past medical history significant for hypertension, epilepsy, bipolar disorder and a nonhealing chronic left foot wound who presents from the wound clinic for worsening of the wound. The wound is necrotic appearing in between the webspaces of the first and second MTP. His foot is quite swollen and erythematous. The patient also has clear evidence of onychomycosis of his toenails. Dr. Cook recommended that he come to the ER for further management and evaluation. CT imaging was concerning for early osteomyelitis. The patient will be hospitalized to start parenteral antibiotics. The hospital service was asked admit the patient for further management and evaluation. The patient states that he has been off p.o. antibiotics for nearly 2 weeks. He states that his foot infection has worsened in the interim. The patient has a history of medical noncompliance. This may be in the setting of underlying psych disorder. He has been seen by infectious disease in the past. 06/24: The patient was resting comfortably in bed. He is in good spirits. Discussed the case with Dr. Cook. 06/25: Patient is resting comfortably in bed. He has no active complaints or concerns. He was sitting up in his chair eating breakfast. He states that he is feeling much better today. He discussed the case with the RN. 06/26: Low grade fever Tmax 37.4 overnight. WBC today pending. Wound culture gram negative bacillus, blood culture no growth to date. Patient is c/o mild pain left foot and right lower leg. Good appetite. Good body strength. Continue to follow ID recs. Continue to follow Dr. Cook/Dr. Bustamante's recs. Continue Flagyl, Cefepime, and Daptomycin. Pending PICC line placement for 6 week IV antibiotics. Physical therapy evaluation and treatment. 06/27: Low grade fever Tmax 37.4 overnight again. WBC 8.8 this morning. Wound culture g rew multiple organisms. Patient is c/o mild pain left foot and right lower leg. Good appetite. Good body strength. Pending PICC line placement today at 1500. Continue to follow ID recs. Continue to follow Dr. Cook/Dr. Bustamante's recs. Continue Flagyl PO, Cefepime IV, and Daptomycin IV. Physical therapy evaluation and treatment. 06/28: PICC lince placed on 06/27 Tentative plan: Discharge tomorrow (2-1) outside swing bed for IV Merrem 1gm q8hr and PO Levaquin 750mg daily for 6 week. cbc, CMP, ESR, CRP weekly. Wound care while there. Constitutional Vitals: Vital Signs Temp Pulse Resp BP Pulse Ox O2 Del Method 36.7 C 76 18 151/95 100 Room Air 06/28/22 12:00 06/28/22 12:00 06/28/22 12:00 06/28/22 12:00 06/28/22 12:00 06/28/22 12:00 Period Temp Pulse Resp BP Sys/Soto Pulse Ox O2 Del Method O2 Flow Rate Last 24 Hr 36.5 C-37.1 C 69-85 18-22 114-151/64-97 95-100 Room Air-Room Air Intake and Output 06/28/22 06/28/22 06/28/22 03:59 11:59 19:59 Intake Total 1200 400 Balance 1200 400 Weight 202.472 kg Intake & Output: Intake & Output 06/28/22 06/28/22 06/28/22 03:59 11:59 19:59 Intake Total 1200 400 Balance 1200 400 Weight 202.472 kg Intake: Oral 1200 400 Other: Meal cheese stick, egg salad # Voids 2 1 # Bowel Movements 1 Head Head exam: Present atraumatic and normal inspection Eye Eye exam: Present normal appearance ENT ENT exam: Present mucous membranes moist, normal exam and normal external ear exam Neck Neck exam: Present normal inspection Respiratory Respiratory exam: Present normal respiratory exam Cardiovascular Cardiovascular exam: Present normal rate and rhythm GI/Abdominal GI/Abdominal exam: Present normal bowel sounds Extremities Exam Extremities exam: Present tenderness; Absent normal inspection Additional comments: Left foot and right lower leg covered by wound dressings Back Exam Back exam: Present normal inspection Neurological Exam Neurological exam: Present alert and oriented X3 Skin Skin exam: Present warm; Absent intact Additional comments: Left foot and right lower leg covered by wound dressings OBJ DATA Labs 06/28/22 05:22 06/28/22 05:22 Labs: Abnormal Lab Results 06/28/22 06/28/22 06/27/22 05:22 05:22 05:18 RBC 4.62 L Hgb 13.0 L 13.0 L ESR 55 H Potassium Glucose 115 H AST 59 H ALT 47 H C-Reactive Protein 2.00 H 06/26/22 08:13 RBC Hgb ESR Potassium 3.1 L Glucose 108 H AST ALT C-Reactive Protein Meds: Medications Acetaminophen (Acetaminophen 325 Mg Tablet) 650 mg PO Q6HP PRN; Protocol PRN Reason: Per Pain Protocol/Fever > 101 Collagenase (Collagenase Top Oint Tube 30gm) 1 dose TOPICAL DAILY [facility] Last Admin: 06/28/22 11:43 Dose: 1 dose Docusate Sodium (Docusate Sodium 100 Mg Capsule) 100 mg PO BID [facility] Last Admin: 06/28/22 08:19 Dose: Not Given Enoxaparin Sodium (Enoxaparin 40 Mg/0.4 Ml Syringe) 40 mg SQ BID [facility] Last Admin: 06/28/22 08:19 Dose: 40 mg Furosemide (Furosemide 40 Mg Tablet) 80 mg PO QDAY [facility] Last Admin: 06/28/22 08:18 Dose: 80 mg Gabapentin (Gabapentin 300 Mg Capsule) 600 mg PO BID [facility] Last Admin: 06/28/22 08:18 Dose: 600 mg Heparin Sodium (Porcine) (Heparin Flush 10 Units/Ml 5 Ml Syringe) 2 ml IV Q12 [facility] Last Admin: 06/28/22 11:43 Dose: 2 ml Piperacillin Sod/Tazobactam (Sod 3.375 gm/ Dextrose) 50 mls @ 100 mls/hr IV Q6H [facility] Last Admin: 06/28/22 11:33 Dose: 100 mls/hr Ibuprofen (Ibuprofen 600 Mg Tablet) 600 mg PO QIDP PRN; Protocol PRN Reason: Per Pain Protocol/Fever > 101 Lamotrigine (Lamotrigine 100 Mg Tablet) 150 mg PO BID [facility] Last Admin: 06/28/22 08:26 Dose: 150 mg Levetiracetam (Levetiracetam 500 Mg Tablet) 2,000 mg PO BID [facility] Last Admin: 06/28/22 08:27 Dose: 2,000 mg Levofloxacin (Levofloxacin 750 Mg Tablet) 750 mg PO DAILY@1100 [facility] Last Admin: 06/28/22 11:42 Dose: 750 mg [place] Carbonate ([place] Carbonate 450 Mg Tab.Sr.12h) 900 mg PO BID [facility] Last Admin: 06/28/22 08:18 Dose: 900 mg Losartan Potassium (Losartan 50 Mg Tablet) 50 mg PO QDAY [facility] Last Admin: 06/28/22 08:18 Dose: 50 mg Ondansetron HCl (Ondansetron 4 Mg/2 Ml Vial) 4 mg IV Q6HP PRN PRN Reason: Nausea And Vomiting Oxycodone/Acetaminophen (Oxycodone/Apap 5/325mg Tablet) 1 tab PO Q4-6HP PRN; Protocol PRN Reason: Per Pain Protocol Last Admin: 06/27/22 21:08 Dose: 1 tab Potassium Chloride (Potassium Chloride 20 Meq Tablet) 40 meq PO QAC [facility] Last Admin: 06/28/22 08:18 Dose: 40 meq Senna (Sennosides 1 Tablet) 2 tab PO [facility] Last Admin: 06/27/22 20:53 Dose: Not Given Sodium Chloride (0.9 % Sodium Chloride 10 Ml Syringe) 10 ml IV Q8 [facility] Last Admin: 06/28/22 05:41 Dose: 10 ml Sodium Chloride (0.9 % Sodium Chloride 10 Ml Syringe) 10 ml IV Q12 [facility] Last Admin: 06/28/22 08:30 Dose: 10 ml Topiramate (Topiramate 100 Mg Tablet) 150 mg PO [facility] Last Admin: 06/27/22 21:07 Dose: 150 mg Trazodone HCl (Trazodone Hcl 50 Mg Tablet) 150 mg PO [facility] Last Admin: 06/27/22 21:08 Dose: 150 mg A/P Assessment and plan (1) Cellulitis of left foot: Status: Acute (2) Cellulitis of right lower leg: Status: Acute (3) Bipolar disorder: Status: Chronic (4) Seizure disorder: Status: Chronic (5) Hypertension: Status: Chronic (6) Hypokalemia: Status: Acute Narrative A/P Narrative: Assessment and Plans: 1. Cellulitis of right lower leg and left foot: Inpatient med surg Consult ID, recs. appreciated Consult Dr. Cook, recs. appreciated Consult Dr. Bustamante, recs. appreciated Wound culture: multiple organisms Blood culture: no growth to date cbc w/ auto diff in the morning to trend WBC PICC line in place Merrem 1gm IV q8hr X6 week Levaquin 750mg PO q daily X6 week cbc, CMP, ESR, CRP weekly while on IV abx Pending outside swing bed placement on 2- Physical therapy evaluation and treatment 2. Hypokalemia: Potassium chloride oral replacement Chemistry daily to trend Also check serum Mg level and replace as needed 3. Seizure disorder: Gabapentin Topamax Keppra 4. Essential hypertension: PO Lasix Losartan 5. Bipolar disorder: Abilify Lamotrigine [place] [facility] ppx: not currently indicated DVT ppx: Lovenox Code status: Full Prognosis: stable Disposition: inpatient med surg; Pending outside swing bed placement on 06-29 Time Spent With Patient Time: Total time spent is greater than 50% in coordination of care (as documented) at patient's floor/unit and/or counseling patient: Subsequent: Total time with patient: 35 - 49 minutes QUALITY VTE Deep Vein Thrombosis/Pulmonary Embolism Present on Admission: No
[2022-06-28] MEDS: oxyCODONE/APAP 5/325MG TABLET PO PRN (17:52)
[2022-06-28] MEDS: TOPIRAMATE 100 MG TABLET PO SCH (22:29)
[2022-06-28] MEDS: traZODone HCL 50 MG TABLET PO SCH (22:32)
[2022-06-28] MEDS: SENNOSIDES 1 TABLET PO SCH (22:36)
[2022-06-29] MEDS: oxyCODONE/APAP 5/325MG TABLET PO PRN (00:05)
[2022-06-29] MEDS: PIPERACILLIN SODIUM/TAZOBACTAM 3.375 GM in DEXTROSE 5% IN WATER 50 ML IV SCH ×3 (06:33→11:03)
[2022-06-29] MEDS: 0.9 % SODIUM CHLORIDE 10 ML SYRINGE IV SCH ×3 (06:34→09:16)
[2022-06-29] MEDS: POTASSIUM CHLORIDE 20 MEQ TABLET PO SCH (07:11)
[2022-06-29 07:32] LABS: Basophils # (Auto) 0.05 K/mcL (0.00-0.30); Basophils % (Auto) 0.5 % (0.0-2.0); Eosinophils # (Auto) 0.24 K/mcL (0.00-0.70); Eosinophils % (Auto) 2.5 % (0.0-7.0); Hematocrit 39.6 % (40.1-51.0); Hemoglobin 12.5 g/dL (13.7-17.5); Lymphocytes # (Auto) 1.87 K/mcL (1.50-4.80); Lymphocytes % (Auto) 19.4 % (15.5-49.0); Mean Cell Volume 88.6 fL (80.0-100.0); Mean Corpuscular HGB Conc 31.6 g/dL (31.0-36.0); Mean Platelet Volume 10.3 fL (8.8-12.5); Monocytes # (Auto) 0.93 K/mcL (0.10-0.90); Monocytes % (Auto) 9.6 % (1.0-12.0); Neutrophils % (Auto) 67.5 % (38.0-78.0); Platelet Count 295 K/mcL (140-440); RBC 4.47 M/mcL (4.63-6.08); Red Cell Distribution Width 13.2 % (11.5-14.5); WBC 9.7 K/mcL (4.5-11.0)
[2022-06-29 08:38] LABS: ALT/SGPT 50 U/L (<40); AST/SGOT 48 U/L (<40); Albumin 3.7 gm/dL (3.2-5.2); Albumin/Globulin Ratio 1.2 (1.0-2.3); Alkaline Phosphatase 83 U/L (39-117); Bilirubin,Total 0.3 mg/dL (0.1-1.0); Blood Urea Nitrogen 9 mg/dL (6-20); Calcium 8.8 mg/dL (8.6-10.4); Carbon Dioxide 24 mmol/L (22-30); Chloride 103 mmol/L (96-108); Glomerular Filtration Rate 96; Glucose 105 mg/dL (70-105)
[2022-06-29] MEDS: DOCUSATE SODIUM 100 MG CAPSULE PO SCH (09:13)
[2022-06-29] MEDS: ARIPIPRAZOLE 5 MG TABLET PO SCH (09:13)
[2022-06-29] MEDS: LOSARTAN 50 MG TABLET PO SCH (09:13)
[2022-06-29] MEDS: levETIRAcetam 500 MG TABLET PO SCH (09:14)
[2022-06-29] MEDS: LITHIUM CARBONATE 450 MG TAB.SR.12H PO SCH (09:14)
[2022-06-29] MEDS: COLLAGENASE TOP OINT TUBE 30GM TOPICAL SCH (09:15)
[2022-06-29] MEDS: lamoTRIgine 100 MG TABLET PO SCH (09:15)
[2022-06-29] MEDS: ENOXAPARIN 40 MG/0.4 ML SYRINGE SQ SCH (09:15)
[2022-06-29] MEDS: FUROSEMIDE 40 MG TABLET PO SCH (09:15)
[2022-06-29] MEDS: GABAPENTIN 300 MG CAPSULE PO SCH (09:16)
--- NOTE | 2022-06-29 09:20 | General Surgery Progress Note ---
SUBJECTIVE Subjective Patient information: Note initiated : 06/29/22 at 9:09 am Service Date, if different from initiated Date: [] Patient: Miguel Vazquez 37 y/o M admitted on 06/23/22 for Infection. Chief Complaint: [] Principal diagnosis: Left foot necrotic cellulitis/osteomyelitis Additional PMFSH (Level 3 Only): Patient seen with Loni Culver RN And Clint Carvalho professional healthcare representative nurse. Progress reviewed and wounds examined. Constitutional Vitals: Vital Signs Temp Pulse Resp BP Pulse Ox O2 Del Method 98.7 F 87 22 147/67 95 Room Air 06/29/22 07:21 06/29/22 07:21 06/29/22 08:00 06/29/22 07:21 06/29/22 08:00 06/29/22 08:00 Period Temp Pulse Resp BP Sys/Soto Pulse Ox O2 Del Method O2 Flow Rate Last 24 Hr 97.7 F-98.8 F 75-87 16-22 139-160/67-100 95-100 Room Air-Room Air Intake and Output 06/28/22 06/29/22 06/29/22 19:59 03:59 11:59 Intake Total 2540 50 2050 Output Total 1200 Balance 2540 50 850 Intake & Output: Intake & Output 06/28/22 06/29/22 06/29/22 19:59 03:59 11:59 Intake Total 2540 50 2050 Output Total 1200 Balance 2540 50 850 Intake: IV 100 50 50 Zosyn 3.375 gm In Dextrose 5% 100 50 50 in Water 50 ml @ 100 mls/hr IV Q6H [facility] Rx#:[id number] Oral 2440 2000 Output: Void Amount 1200 Other: Meal Dinner Percent of Meal Consumed 75% Feeding Ability Independent # Voids 1 2 Exam: AVSS. No interval changes AMANDA. L/E: significant improvement with resolution cellulitis LEFT forefoot and toes. Multiple discrete foci of osteomyelitis metatarsal bones LEFT foot Lymphedema of legs chronic. RIGHT leg blister site is dry. Deformed elongated and crusted fungal toenails to be trimmed . Reviewed ID consult and f/u notes. Lab results checked. Appreciate input regarding dual antibiotic coverage IV and PO Meropenem and Levaquin per tissue cultures / clinical response. A/P Narrative A/P Narrative: Assessment: Satisfactory progress. CSSSI Left forefoot. Osteomyelitis multiple foci. Chronic lymphedema legs. Epidermal blister site dry. Plan of Treatment: Plan: [facility]U at [facility] care clinic in 2 weeks time. Time Spent With Patient Time: Total time spent is greater than 50% in coordination of care (as documented) at patient's floor/unit and/or counseling patient:
[2022-06-29] MEDS: LEVOFLOXACIN 750 MG TABLET PO SCH (11:03)
== END 2022-06-29 12:40 | disposition other institution (70) | DRG 540 ==
LOC: ED 13:35 → ICU 17:30
PROVIDERS: ADMIT Student in an Organized Health Care Education/Training Program; ATTEND Student in an Organized Health Care Education/Training Program